=== PATIENT | male | born 1960 | race Caucasian/White ===

== ENCOUNTER → 2016-12-13 | Outpatient (CLI) | payer OTHER ==
[~2016-12-13] MED LIST: ADAL1INJ INJ; ASACOL PO; ASPI-435 PO; AZAT50TA17 PO; CALC-279 PO; CYAN1TAB PO; LORA-741 PO; LSN5 PO; MULT-506 PO; OMG3 PO; PRLSR20 PO; SERT50TA PO; TIMO0.5S2 OPB; ZOLP10TA PO
== END | disposition home or self-care (01) ==
LOC: C.CPL 15:41
DX: Z01.810 Encounter for preprocedural cardiovascular examination (principal)

== ENCOUNTER → 2017-06-29 | Outpatient (CLI) | payer OTHER ==
--- NOTE | 2017-06-29 17:46 | DIAGNOSTIC IMAGING REPORT ---
KUB CLINICAL HISTORY: N20.0 Nephrolithiasis COMPARISON STUDY: 01/27/2016 FINDINGS: There is no pathologic bowel dilatation. There are clustered lower pole right renal calculi measuring 15 mm in aggregate. There are clustered lower pole left renal calculi measuring 8 mm in greatest. There is no pathologic bowel dilatation. There are no definite ureteral calculi. There are surgical clips in the right upper quadrant. IMPRESSION: Bilateral nephrolithiasis with increasing right lower pole renal stone burden. Electronically signed by: Benjamin Callaway M.D. 06/29/2017 5:44 PM Dictated Date/Time: 06/29/2017 5:43 PM
== END | disposition home or self-care (01) ==
LOC: C.RAD 17:07
PROVIDERS: ATTEND Urology
DX: N20.0 Calculus of kidney (principal)

== ENCOUNTER 2019-08-14 08:52 | Inpatient (IN) ==
--- NOTE | 2019-08-09 12:33 | Anesthesiology Consultation ---
Date of Service August 09, 2019 Assessment & Plan Chart Review Chart Review: Acceptable Risk for Surgery (recent surgery- grade 2 view with mac 3) and Patient NOT seen in Pre Admission Testing History Surgery Operation Date: 08/14/19 10:40 Proposed Procedures p Navigational Bronchoscopy with ICG Markings, - Silvio Diaz MD, FACS s Robotic Left Video Assisted Thoracoscopy with Left Lower Lobe Wedge Resection, Possible Left Lower Lobectomy with Mediastinal Lyphadenectomy - Silvio Diaz MD, FACS Height/Weight Height: 6 ft Weight: 92.986 kg Allergies Allergy/AdvReac Type Severity Reaction Status Date / Time No Known Allergies Allergy Verified 08/09/19 10:30 Medications Home Medications Medication Instructions Recorded Confirmed Last Taken alfuzosin ER 10 mg tablet,extended 10 mg PO QAM #90 tab 06/07/19 08/09/19 08/01/19 08:00 release 24 hr aspirin 81 mg tablet,delayed 81 mg PO QAM tab 06/07/19 08/09/19 08/01/19 08:00 release cyanocobalamin (vit B-12) ER 1,000 1,000 mcg PO QAM tab 06/07/19 08/09/19 08/01/19 08:00 mcg tablet,extended release latanoprost 0.005 % eye drops 1 drp OPB HS ml 06/07/19 08/09/19 08/01/19 19:00 lisinopril 5 mg tablet 5 mg PO QAM tab 06/07/19 08/09/19 08/02/19 04:00 lorazepam 0.5 mg tablet 0.5 mg PO DAILY tab 06/07/19 08/09/19 Unknown mesalamine ER 0.375 gram 0.75 g PO BID cap 06/07/19 08/09/19 08/01/19 08:00 capsule,extended release 24 hr multivitamin tablet 1 tab PO DAILY 06/07/19 08/09/19 08/01/19 08:00 omeprazole 40 mg capsule,delayed 40 mg PO QAM cap 06/07/19 08/09/19 08/01/19 08:00 release sertraline 50 mg tablet 50 mg PO DAILY PRN tab 06/07/19 08/09/19 Unknown timolol maleate 0.5 % eye gel 1 drp OPB HS ml 06/07/19 08/09/19 08/01/19 19:00 forming solution zolpidem 10 mg tablet 10 mg PO HS PRN tab 06/07/19 08/09/19 08/01/19 19:00 adalimumab 40 mg/0.8 mL 40 mg SQ WK 06/19/19 08/09/19 07/30/19 08:00 subcutaneous syringe kit atorvastatin 20 mg tablet 20 mg PO HS 06/19/19 08/09/19 08/01/19 19:00 Past Medical History Medical History History of kidney stones History of squamous cell carcinoma Anxiety Benign prostate hyperplasia NO PROBLEMS AT CURRENT Crohns disease GERD (gastroesophageal reflux disease) Hypertension Osteoarthritis Past Family History Family History Father Prostate cancer Hypertension Cancer Mother Hypertension Past Surgical History Surgical History History of squamous cell carcinoma excision History of carpal tunnel surgery of left wrist ULNAR NERVE TRANSPOSITION History of colon surgery BOWEL RESECTION 1997 [facility] Hx of arthroscopy of right knee Hx of cholecystectomy 1997 Hx of colonoscopy Hx of lithotripsy S/P bronchoscopy with biopsy (08/02/19) Endobronchial Ultrasound Bronchoscopy Navigational with Biopsies Dr. Diaz 08/02/19 [facility] Social History Smoking Status: Never smoker Do You Dip or Chew Tobacco: No Hx Alcohol Use: Yes Alcohol type: beer alcohol intake frequency: holidays/special occasions only Hx Substance Use: No substance use type: does not use Testing Electrocardiogram Date: 07/11/19 Findings: + SB @ (52 bpm)
[~2019-08-14 08:52] MED LIST changes: -ADAL1INJ INJ; -ASACOL PO; -ASPI-435 PO; -AZAT50TA17 PO; -CALC-279 PO; -CYAN1TAB PO; +DEXAMETHASONE SOD INJ 4 MG/ML VIAL ONE; +GLYCOPYRROLATE 0.2 MG/ML VIAL ONE; +LIDOCAINE HCL 2% 2 ML VIAL/AMP(20MG/ML) INFIL ONE; -LORA-741 PO; +LR 15ML/HR IV SCH; -LSN5 PO; +MIDAZOLAM HCL 1 MG/ML 2ML VIAL ONE; -MULT-506 PO; +NEOSTIGMINE METHYLSULFATE 5 MG/5 ML SYR ONE; -OMG3 PO; +ONDANSETRON INJ 2 MG/ML 2 ML VIAL ONE; -PRLSR20 PO; +PROPOFOL IV EMULSION 10 MG/ML 20 ML VIAL IV ONE; -SERT50TA PO; -TIMO0.5S2 OPB; -ZOLP10TA PO; +fentaNYL citrate 100 MCG/2 ML VIAL ONE
--- NOTE | 2019-08-14 09:38 | History & Physical Bridge Note ---
Date of Service August 14, 2019 History & Physical Bridge Note I have examined the patient, reviewed the History & Physical and in the interval since the performance of the History & Physical I have noted the following changes of clinical significance: no changes noted
[2019-08-14] MEDS ORDERED: BUPIVACAINE 0.5 % 5 MG/1 ML MPF 30ML VIAL ONE (10:06)
[2019-08-14] MEDS ORDERED: BUPIVACAINE LIPOSOME 1.3% 266 MG/20 ML VIAL ONE (10:07)
[2019-08-14] MEDS ORDERED: SODIUM CHLORIDE 0.9% PF 50 ML VIAL ONE (10:07)
[2019-08-14] MEDS ORDERED: ONDANSETRON INJ 2 MG/ML 2 ML VIAL IV PRN ×2 (10:09→16:34)
[2019-08-14] MEDS ORDERED: ePHEDrine sulfate 50 MG/ML AMP IV PRN (10:09)
[2019-08-14] MEDS ORDERED: ATROPINE SULFATE 0.1 MG/ML 10ML SYR IV PRN (10:09)
[2019-08-14] MEDS ORDERED: HYDROmorphone INJ 2 MG/ML SYR/VIAL IV PRN (10:09)
[2019-08-14] MEDS ORDERED: CLINDAMYCIN PHOS 300 MG/2 ML VIAL ONE ×3 (10:36→12:00)
[2019-08-14] MEDS ORDERED: CLINDAMYCIN PHOS 900 MG/6 ML VIAL IV SCH (11:00)
--- NOTE | 2019-08-14 11:23 | Fluoroscopy Report ---
FL chest 1V frontal HISTORY: 59 years-old Male NAVIGATIONAL BRONCH LEFT STATUS post bronchoscopy COMPARISON: Chest CT 07/25/2019 TECHNIQUE: One spot fluoroscopic image of the left chest was obtained utilizing 38.7 seconds fluorosc opy time FINDINGS: Bronchoscope with sheath and guidewire projects over the left lung base. Previously noted solid pulmo nary nodule of the left lower lobe is not identified. IMPRESSION: Fluoroscopic assistance as above. Please see procedural report for further details. The above report was generated using voice recognition software. It may contain grammatical, syntax o r spelling errors. Electronically signed by: Salvador Singh M.D. 08/14/2019 11:21 AM
[2019-08-14] MEDS ORDERED: ePHEDrine sulfate 50 MG/ML SYR ONE (14:21)
[2019-08-14] MEDS ORDERED: PHENYLEPHRINE 100MCG/ML 5ML SYR ONE (14:21)
[2019-08-14] MEDS ORDERED: ROCURONIUM BROMIDE 10 MG/ML 5 ML VIAL ONE ×5 (14:33→15:30)
[2019-08-14] MEDS ORDERED: fentaNYL citrate 100 MCG/2 ML VIAL ONE ×2 (14:57→15:35)
--- NOTE | 2019-08-14 15:03 | Post Operative Brief Note ---
PG Immediate Post Op with CF Date of Surgery August 14, 2019 Pre & Post Diagnosis Operation Date: 08/14/19 10:30 Pre-Op Diagnosis: Left Lower Lobe Lung Mass, COPD Post-Op Diagnosis: Left Lower Lobe Lung Mass, COPD I identified the patient and participated in the time-out.: Yes Procedure Operation Date: 08/14/19 10:30 Actual Procedures p Navigational Bronchoscopy with ICG Markings,(Left) - Silvio Diaz MD, FACS s Robotic Left Video Assisted Thoracoscopy with Left Lower Lobe Wedge Resection, Left Lower Lobectomy with Mediastinal Lyphadenectomy(Left) - Silvio Diaz MD, FACS Surgeon Silvio Diaz MD, FACS Repairer [employer] Julio PEREZ Estimated Blood Loss 75 Findings Consistent with Post-Op Diagnosis Specimens Specimen Description: Frozen Section: #1 - left lower lobe wedge for diagnosis #2 - left lower lobe for bronchial margins Permanent Specimens: A. L9 lymph node x2 B. L8 lymph node x3 C. Level 7 lymph node D. L10 lymph node E. L11 lymph node x7 F. L12 lymph node G. Level 5 lymph node H. Level 6 lymph node Drains Mishra Catheter
[2019-08-14] MEDS ORDERED: METOCLOPRAMIDE HCL INJ 5 MG/ML 2 ML VIAL IV ONE (15:25)
[2019-08-14] MEDS: fentaNYL citrate 100 MCG/2 ML VIAL IV PRN ×4 (15:35→15:55)
--- NOTE | 2019-08-14 15:37 | Operative Report ---
Post Operative Report Pre & Post Diagnosis Operation Date: 08/14/19 10:30 Pre-Op Diagnosis: Left Lower Lobe Lung Mass, COPD Post-Op Diagnosis: Left Lower Lobe Lung Mass, COPD I identified the patient and participated in the time-out.: Yes Procedure Operation Date: 08/14/19 10:30 Actual Procedures p Navigational Bronchoscopy with ICG Markings,(Left) - Silvio Diaz MD, FACS s Robotic Left Video Assisted Thoracoscopy with Left Lower Lobe Wedge Resection, Left Lower Lobectomy with Mediastinal Lyphadenectomy(Left) - Silvio Diaz MD, FACS Surgeon Silvio Diaz MD, FACS Neurophysiologist Julio PEREZ Estimated Blood Loss 75 Findings Consistent with Post-Op Diagnosis Specimens Lymph nodes and left lower lobe Drains one 24 fr. chest tube Anesthesia Type General Complications none Disposition Accompanied Patient To Recovery: No Disposition: Recovery Room Indications Jonny Man is a 59-year-old male who was found to have a new mass in his left lower lobe. We worked him up and felt he would be a candidate for resection. On 08/14/2019 the patient was brought to the operating room and underwent an electromagnetic navigational bronchoscopy and marking of the mass with indocyanine green dye. Wedge resection was performed however I did not feel we had included the mass. For this reason I performed a robot-assisted thoracoscopic left lower lobectomy. He did quite well with negligible blood loss and it turns out this mass was indeed an adenocarcinoma. He had a second mass more inferior which had not changed over the last 4 years and this was a granuloma. He tolerated the procedure well and was extubated in the room. Description of Procedure Patient was brought to the operating room in supine position. General anesthesia was induced and intubation was performed with an 8.5 tube. After proper timeout had been called and prophylactic antibiotics given,a magnetic navigational bronchoscopy was performed. We are able to navigate out to the mass and it appeared we were in the vicinity with our radial ultrasound probe. 1 cc of indocyanine green dye was injected followed by half cc of air. We then remove the navigational catheter and the patient had no bleeding. He was then changed over to a double-lumen tube. There was some difficulty placing this but finally we got this properly positioned under bronchoscopic guidance with Dr. Cuadra. Patient was then turned in the right lateral decubitus position his left chest prepped and draped in usual sterile fashion. Another timeout was called and a second dose of antibiotics given as it been more than an hour since her first dose. I placed a 5 mm port in the eighth interspace on the left just anterior to the midaxillary line. There were no adhesions noted. I then put an 8 mm port anterior and then posterior under thoracoscopic guidance. Finally a 5 mm port was placed closer to the spine in the eighth interspace. Assistance port was placed on the left just above the diaphragm. Exparel, 266 mg and 20 cc of solution, was mixed with 30 cc of 0.5% Marcaine and 250 cc of saline. This was injected into each of the port sites before remaining incision. It was also injected into each of the intercostal spaces from the second to the 12th rib. This was done under thoracoscopic guidance. The robot was then docked. Really upon going and we addressed the left lower lobe and used our firefly fluorescence and solve the indocyanine green dye. This was wedged out. Unfortunately it did not feel like a mass was in this and I did send it down for frozen section. Dr. Rich concurred that he saw no mass. I closely inspected the area and did not palpate any masses however it is difficult to do with the robot. Given his high risk I elected to proceed with a lobectomy. The inferior pulmonary ligament was taken down and a level 9 node was taken. I carried this up and dissected out the inferior pulmonary vein and dissected out the level 8 nodes. Coming up more posteriorly I then dissected out level 7 node. I dissected out the artery and the posterior aspect of the vein and the bronchus. Tension was then turned towards anteriorly and I dissected out the anterior aspect of the vein and coming up dissected out a level 11 node. I then went to the fissure and completed the fissure from the continuation pulmonary artery to the right lower lobe posteriorly through the fissure and pleated the fissure using the [place] bipolar forceps. It was almost a complete fissure. I then gently dissected out the level 12 nodes around the artery to the superior segment of the lower lobe and fired Endo THALIA stapler across this. I then freed up the bronchus and the artery a bit more posteriorly. Coming back around I then dissected out anteriorly the entire anterior fissure and completed this using Endo THALIA staplers. We easily identify the artery and the bronchus. Endo THALIA stapler was fired across the bronchus just distal to the takeoff of the lingual artery. We then dissected this free and were able to identify the lingual bronchus and fired an Endo THALIA stapler just distal to this. We then placed the lobe into an Endobag but left in place while I dissected out the anterior level 10 nodes as well as a level 5 and 6 node. These were all delivered off the field. The robot was then undocked and we removed the mass. We assess for air leaks and the really was not an air leak. 24 [place]ian chest tube was placed in the anteriormost port directed towards the apex and held in place heavy silk suture. We had to enlarge the assistance port in order to deliver the lobe off of the field in the Endobag. We then closed this with a 0 Vicryl running and you was fashion to reapproximate the muscle. 4 Monocryl was then used a running septic or fashion approximate the wound edges. Patient was then turned into the supine position and extubated and was transported back to the postanesthesia care unit stable condition. Frozen section showed this mass to be an adenocarcinoma which was mucin producing. The lowermost mass was a granuloma. The patient tolerated it well. I attest to the content of the Intraoperative Record and any orders documented therein. Any exceptions are noted below.
--- NOTE | 2019-08-14 15:55 | XRay Report ---
XR chest 1V portable HISTORY: 59 years-old Male LLL follow-up study in a patient with prior left lung surgery. COMPARISON: Chest radiograph 08/02/2019 TECHNIQUE: Portable AP view of the chest FINDINGS: Postoperative changes of the left lung. Left-sided chest tube distal tip terminates adjacent to the l ateral left lung apex. Moderate subcutaneous and deep tissue air about the left lateral hemithorax. N o definite pneumothorax identified. Opacity of the lateral right upper lung may reflect loculated flu id within the minor fissure versus airspace disease. Small right pleural effusion is suggested. Cardi omegaly without overt pulmonary edema. IMPRESSION: 1. Postoperative changes of the left lung with left-sided chest tube in place. No definite pneumothor ax identified. 2. Small right pleural effusion with right lateral midlung opacity suggestive of loculated fluid with in the minor fissure. The above report was generated using voice recognition software. It may contain grammatical, syntax o r spelling errors. Electronically signed by: Salvador Singh M.D. 08/14/2019 3:53 PM
--- NOTE | 2019-08-14 16:55 | Anesthesiology Progress Note ---
Date of Service August 14, 2019 Anesthesia Post Procedure Vital Signs Vital Signs: Temp Pulse Pulse Resp BP BP Pulse Ox 08/14/19 16:10 36.2 C L 76 16 148/80 H 95 08/14/19 16:00 73 16 146/81 H 99 08/14/19 15:50 82 16 163/79 H 98 08/14/19 15:40 76 16 155/79 H 95 08/14/19 15:30 77 16 136/90 95 08/14/19 15:23 36.0 C L 82 16 141/85 H 96 08/14/19 09:45 36.4 C L 60 20 154/85 H 99 Transfer of Care Handoff Completed per policy Notes Mental Status: alert / awake / arousable and participated in evaluation Patient Amnestic to Procedure: Yes Nausea / Vomiting: adequately controlled Pain: adequately controlled Airway Patency, RR, SpO2: stable & adequate BP & HR: stable & adequate Hydration State: stable & adequate Anesthetic Complications: no major complications apparent and Pt Satisfied with anesthetic care
[2019-08-14] MEDS: MoRPHine SULFATE 2 MG/ML CARP IV PRN ×3 (16:56→23:55)
[2019-08-14] MEDS: ACETAMINOPHEN 1,000 MG/100 ML VIAL IV SCH (17:49)
[2019-08-14] MEDS: OXYCODONE HCL IR 5 MG TAB (IMMEDIATE RELEASE) PO PRN (20:05)
[2019-08-14] MEDS: D5W AND 1/2NSS 1,000 ML IV SCH (20:07)
[2019-08-14] MEDS ORDERED: COUGH DROP (SUGAR FREE) LOZ 24 LOZ/1 BOX BUCCAL PRN (20:53)
[2019-08-14] MEDS: SERTRALINE HCL 50 MG TABLET PO SCH (21:06)
[2019-08-14] MEDS: DOCUSATE SODIUM 100 MG CAP PO SCH (21:06)
[2019-08-14] MEDS: LATANOPROST 0.005% OP SOLN 2.5 ML BTL OPB SCH (21:06)
[2019-08-14] MEDS: ATORVASTATIN 20 MG TAB PO SCH (21:06)
[2019-08-14] MEDS: TIMOLOL GFS 0.5% OPH SOLN 74 DROPS/5 ML BTL OPB SCH (21:06)
[2019-08-14] MEDS ORDERED: COUGH DROP (SUGAR FREE) LOZ 24 LOZ/1 BOX BUCCAL ONE (21:11)
[2019-08-14] MEDS: MESALAMINE 250 MG CAPCR PO SCH (21:12)
[2019-08-14] MEDS ORDERED: INFLUENZA VIRUS QUAD VACCINE 0.5 ML SYR IM ONE (21:30)
[2019-08-14] MEDS ORDERED: INFLUENZA ADMINISTRATION CHARGE ONE (21:30)
[2019-08-14] MEDS: METOCLOPRAMIDE HCL INJ 5 MG/ML 2 ML VIAL IV SCH (23:56)
[2019-08-15] MEDS: ACETAMINOPHEN 1,000 MG/100 ML VIAL IV SCH (01:18)
[2019-08-15] MEDS: OXYCODONE HCL IR 5 MG TAB (IMMEDIATE RELEASE) PO PRN ×3 (05:44→21:44)
[2019-08-15] MEDS: D5W AND 1/2NSS 1,000 ML IV SCH (05:53)
[2019-08-15 05:54] LABS: Basophils # (auto) 0.01 K/uL (0-0.2); Basophils % (auto) 0.1 %; Hematocrit (blood only) 39.2 % (42-52); Hemoglobin 13.3 g/dL (14.0-18.0); Immature Granulocytes # (auto) 0.05 K/uL (0.00-0.02); Immature Granulocytes % (auto) 0.3 %; Lymphocytes # (auto) 1.61 K/uL (1.2-3.4); Lymphocytes % (auto) 8.9 %; Mean Corpuscular Hemoglobin 28.3 pg (25-34); Mean Corpuscular Volume 83.4 fL (80-100); Mean Platelet Volume 9.2 fL (7.4-10.4); Monocytes # (auto) 2.24 K/uL (0.11-0.59); Monocytes % (auto) 12.4 %; Neutrophils # (auto) 14.18 K/uL (1.4-6.5); Neutrophils % (auto) 78.3 %; Platelet Count 368 K/uL (130-400); RDW Coefficient of Variation 15.1 % (11.5-14.5); RDW Standard Deviation 46.3 fL (36.4-46.3); White Blood Count 18.09 K/uL (4.8-10.8)
[2019-08-15 06:12] LABS: BUN Creatinine Ratio 11.6 (10-20); Calcium 8.9 mg/dl (8.5-10.1); Creatinine Clr Calc Pharmacy 107.8 ml/min; Est GFR (Non-African American) 97.5; Mean Corpuscular Hgb Conc 33.9 g/dL (32-36); Potassium 3.8 mmol/L (3.5-5.1)
--- NOTE | 2019-08-15 07:20 | XRay Report ---
XR chest 1V portable CLINICAL HISTORY: Postop left lung surgery. COMPARISON STUDY: 08/14/2019 FINDINGS: A left-sided chest tube is again visualized. There is decreasing left-sided subcutaneous em physema. There is no pneumothorax. There is left-sided volume loss consistent with history of surgery . There has been resolution of the right midlung zone opacity, consistent with resolving intrafissura l fluid.[ IMPRESSION: 1. Postsurgical changes involving the left hemithorax. No evidence of pneumothorax 2. Interval resolution of the previously identified fluid loculated within the right minor fissure Electronically signed by: Benjamin Callaway M.D. 08/15/2019 7:19 AM
[2019-08-15] MEDS: MoRPHine SULFATE 2 MG/ML CARP IV PRN ×3 (07:42→19:31)
[2019-08-15] MEDS: METOCLOPRAMIDE HCL INJ 5 MG/ML 2 ML VIAL IV SCH (07:42)
--- NOTE | 2019-08-15 07:58 | Surgery Progress Note ---
Date of Service August 15, 2019 Assessment & Plan (1) Adenocarcinoma, lung: -pt. is s/p LLL on 08/14/19 -frozen section showed adenocarcinoma with final path pending -CXR today shows no pneumothorax -CT will stay in as he has tiny air leak with suction; no air leak on water seal -due to urinary complaints will place on flomax -continue pain meds -encourage ambulation, coughing, deep breathing, pulmonary toilet, and use of IS -lovenox in place for DVT prevention Subjective Pt. notes discomfort from chest tube. He has been ambulating in hallway. He is tolerating o intake without N/V. No fevers, shakes, chills. He notes diff iculty voiding--states that urine "dribbles and he does not feel as though his bladder is emptying." He denies voiding difficulties at home. Physical Exam Constitutional: well developed and well nourished; no acute distress Respiratory: normal respiratory effort; no respiratory distress and no labored breathing slight decrease of BS at left base with occasional rhonchi that clears with cough Cardiovascular: Rate/Rhythm: regular rate and regular rhythm Gastrointestinal (Abdomen): Percussion/Palpation: abdomen nontender Musculoskeletal: no calf pain Results & Data Vital Signs (Past 12 Hours) Vital Signs Temp Pulse Resp BP Pulse Ox 08/15/19 06:48 142/84 H 08/15/19 05:36 37.1 C 58 L 18 173/91 H 93 08/15/19 03:35 36.9 C 61 17 119/74 91 08/15/19 01:35 37.1 C 64 19 146/89 H 91 08/14/19 23:56 94 08/14/19 23:35 36.9 C 69 17 128/75 91 08/14/19 21:33 36.8 C 67 18 124/75 93 08/14/19 20:40 36.7 C 70 18 136/88 93 PG Care Time/CCT Total # of Minutes Spent Total Time Spent with Patient: Total time spent is greater than 50% in c oordination of care (as documented) at patient's floor/unit and/or counseling patient:
[2019-08-15] MEDS: ENOXAPARIN INJ 40 MG/0.4 ML SYR SQ SCH (10:13)
[2019-08-15] MEDS: MULTIVITAMIN TAB PO SCH (10:14)
[2019-08-15] MEDS: CYANOCOBALAMIN 500 MCG TABLET (VITAMIN B-12) PO SCH (10:14)
[2019-08-15] MEDS: TAMSULOSIN HCL 0.4 MG CAP PO SCH (10:14)
[2019-08-15] MEDS: MESALAMINE 250 MG CAPCR PO SCH ×2 (10:14→19:32)
[2019-08-15] MEDS: LORazepam 0.5 MG TAB PO SCH ×2 (10:14→10:20)
[2019-08-15] MEDS: DOCUSATE SODIUM 100 MG CAP PO SCH ×2 (10:14→19:33)
[2019-08-15] MEDS: ASPIRIN 81 MG ECTAB PO SCH (10:15)
[2019-08-15] MEDS: LISINOPRIL 5 MG TAB PO SCH (10:15)
[2019-08-15] MEDS: PANTOprazole 40 MG TAB PO SCH (10:15)
[2019-08-15] MEDS: KETOROLAC TROMETHAMINE 15 MG/ML VIAL IV PRN (11:37)
[2019-08-15] MEDS: ACETAMINOPHEN 325 MG TAB PO SCH ×2 (11:37→17:01)
[2019-08-15] MEDS ORDERED: LORazepam 0.5 MG TAB PO PRN (12:16)
[2019-08-15] MEDS: SERTRALINE HCL 50 MG TABLET PO SCH (19:33)
[2019-08-15] MEDS: ATORVASTATIN 20 MG TAB PO SCH (19:33)
[2019-08-15] MEDS: LATANOPROST 0.005% OP SOLN 2.5 ML BTL OPB SCH ×2 (19:34→19:35)
[2019-08-15] MEDS: TIMOLOL GFS 0.5% OPH SOLN 74 DROPS/5 ML BTL OPB SCH (19:35)
[2019-08-16] MEDS: ACETAMINOPHEN 325 MG TAB PO SCH ×3 (00:13→11:00)
[2019-08-16] MEDS: MoRPHine SULFATE 2 MG/ML CARP IV PRN ×2 (00:47→05:57)
--- NOTE | 2019-08-16 07:07 | XRay Report ---
XR chest 1V portable CLINICAL HISTORY: Postop left lung surgery COMPARISON STUDY: 08/15/2019 FINDINGS: The left-sided chest tube remains unchanged in position. There is no left-sided pneumothora x. There is left-sided volume loss consistent with history of prior surgery. The heart remains mildly enlarged. There is a small amount of left-sided subcutaneous emphysema. There are mild right perihil ar atelectatic changes. There is no lobar consolidation. There is no failure.[ IMPRESSION: Stable findings. Postsurgical changes involving the left lung. No evidence of pneumothora x. Electronically signed by: Benjamin Callaway M.D. 08/16/2019 7:06 AM
--- NOTE | 2019-08-16 07:49 | XRay Report ---
XR chest 1V portable CLINICAL HISTORY: tube removal COMPARISON STUDY: 08/16/2019 FINDINGS: The cardiac and mediastinal contours remain stable. There is been interval removal of the l eft-sided chest tube. No pneumothorax is visualized. There is a small amount of subcutaneous emphysem a on the left. There is minor basilar atelectasis. There is no lobar consolidation. There is no failu re.[ IMPRESSION: Interval removal of the left-sided chest tube. No evidence of pneumothorax. Electronically signed by: Benjamin Callaway M.D. 08/16/2019 7:47 AM
[2019-08-16] MEDS: KETOROLAC TROMETHAMINE 15 MG/ML VIAL IV PRN (08:00)
[2019-08-16] MEDS: DOCUSATE SODIUM 100 MG CAP PO SCH (09:08)
[2019-08-16] MEDS: PANTOprazole 40 MG TAB PO SCH (09:08)
[2019-08-16] MEDS: MESALAMINE 250 MG CAPCR PO SCH (09:08)
[2019-08-16] MEDS: CYANOCOBALAMIN 500 MCG TABLET (VITAMIN B-12) PO SCH (09:08)
[2019-08-16] MEDS: MULTIVITAMIN TAB PO SCH (09:08)
[2019-08-16] MEDS: LISINOPRIL 5 MG TAB PO SCH (09:09)
[2019-08-16] MEDS: TAMSULOSIN HCL 0.4 MG CAP PO SCH (09:09)
[2019-08-16] MEDS: ASPIRIN 81 MG ECTAB PO SCH (09:09)
[2019-08-16] MEDS: ENOXAPARIN INJ 40 MG/0.4 ML SYR SQ SCH (09:09)
--- NOTE | 2019-08-18 09:13 | Discharge Summary ---
Date of Service Date of admission 08/14/2019 Date of discharge 08/16/2019 Admission HPI Per Admitting Provider 59-year-old male who was found to have a new nodule his left lung which was concerning. We worked him up and felt he would be a candidate for a marking using letter magnetic navigational bronchoscopy and indocyanine green dye with a wedge resection frozen section. This was done with the da Magdi robot. Discharge Data Procedures Performed Operation Date: 08/14/19 10:30 Actual Procedures s Navigational Bronchoscopy with ICG Markings,(Left) - Silvio Diaz MD, FACS p Robotic Left Video Assisted Thoracoscopy with Left Lower Lobe Wedge Resection, Left Lower Lobectomy with Mediastinal Lyphadenectomy(Left) - Silvio Diaz MD, FACS Hospital Course (1) Adenocarcinoma, lung: (2) S/P lobectomy of lung: Mr. Brewer is admitted on 08/14/2019 and underwent an uncomplicated elec tromagnetic navigational bronchoscopy and marking of this left lower lobe mass with a injection of indocyanine green dye. We then turned the patient and performed a robot-assisted thoracoscopic evaluation with a wedge resection and frozen section. We then performed a robot-assisted thoracoscopic left lower lobectomy with mediastinal lymphadenectomy. He did very well had no air leak. On postop day 2 I removed his chest tube. This greatly alleviated his pain. He was ambulate in the hallway and was on room air. Final pathology shows this to be a stage I adenocarcinoma of the lung. All 19 nodes were negative as were his margins. He will not require adjuvant therapy. He was discharged home on postop day 2. I will see him back in the office in a week.
== END 2019-08-16 11:19 | disposition home or self-care (01) | DRG 164 ==
LOC: ASU 08:52 → 3N 15:14

== ENCOUNTER 2020-05-14 11:35 | Observation (INO) ==
--- NOTE | 2020-05-14 15:50 | History & Physical Report ---
Date of Service May 14, 2020 Assessment & Plan (1) Urinary tract obstruction by kidney stone: Proximal right-sided 12mm ureteral stone with associated hydronephrosis based on CT from earlier today at [facility]. Spoke with Dr Rosado from [facility] who will likely take him to the OR this evening for ureteral stent placement. ?UTI given chills overnight last pm and leukocytosis. Thus, s/p rocephin at outside hospital prior to transfer to [facility]. Will need to f/u tomorrow with urine culture at [facility]. Cont IV cipro in meantime. NPO, copious IV fluids, pain meds, flomax, and anti-emetics. Spoke with Dr Rosado re: SMV thrombosis and need for anticoagulation. Will start latter when safe to do so from urological perspective. (2) Superior mesenteric vein thrombosis: This is the likely cause of his anterior abdominal pain that is to the right of his midline incision. Risk factors - inflammation from Crohn's disease, recent surgery, etc. Can't rule out hereditary factors. Consider genetic work-up. Spoke with Dr Galloway from general surgery who will consult. Will need systemic anticoagulation as soon as possible. I discussed this issue with Dr Rosado from urology. Finally, I contacted [facility] and spoke with the patient's colorectal surgeon, Dr Gómez. He agrees with systemic anticoagulation as soon as possible. Start cipro/flagyl IV to prevent small bowel translocation. (3) Crohns disease: Long-standing diagnosis. On biological agent and mesalamine. Recent small bowel resection at [facility] on 04/29/20. Continue mesalamine. (4) Wells esophagus: Cont PPI daily. (5) GERD (gastroesophageal reflux disease): PPI daily. (6) Hypertension: Controlled. Hold SANDRA in the setting of obstructing stone. (7) Benign prostate hyperplasia: Cont flomax. (8) Hypokalemia: Replace with KCL in IV fluids as well as KCL 40meq PO x 1. Repeat BMP am. Mag level at [facility] was normal. (9) Hyperlipidemia: Cont statin (10) DVT prophylaxis: Following ureteral stent placement will be on systemic anticoagulation for SMV thrombosis. Total time 75 minutes including reviewing all outside records, discussing care with [facility] gen surg & urology, and contacting colorectal surgery at [facility]. Admission and Anticipated Discharge Date Admission Date: May 14, 2020 History of Present Illness Chief Complaint: right flank pain 2nd to kidney stone Primary Care Provider: Simone Ying 60yo male with h/o Crohn's disease with recent small bowel resection on 04/29/2020 at [facility] (about 1 foot of small intestine) and discharged on 05/04/20 to home presents as a transfer from [facility] due to a 12mm right- sided obstructing kidney stone. Pain started in right lower back last night about 10pm. He had associated emesis. Pain was constant through the night last evening. This am finally went to [facility] for evaluation due to persistent pain. CT abd/pelvis showed the right-sided stone. No dysuria or hematuria. Has had lithotripsy in the past but no stents (has seen Dr Beasley with [facility]). Since coming home from [place] he has had fairly constant pain to the right side of his midline abdominal incision. He saw his surgeon, Dr Cornelius Gómez, last Monday and was given a good report from an operative standpoint. He mentions he had gone to the ER in [place] on May 05 due to this pain and had a CT abd/pelvis at that time as well. He was told that the CT was without any acute pathology. Of note - the pain in the right flank is separate from the anterior abdominal pain. Records from [facility] reviewed: CT abd/pelvis earlier today - 1. obstructing 12mm right kidney stone with hydronephrosis 2. 8mm stone in left renal pelvis 3. extensive thrombus in the superior mesenteric vein and branch venous structures to the right lower quadrant 4. postsurgical changes right lower quadrant. Residual free air likely result of recent surgery. WBC 15.8 hemoglobin 10.9 MCV 80 Platelets 492 Diff -- Neutrophils 87% BUN 12 Cr 1 Na 134 K 3 Mag 1.8 lactate 0.9 ESR 40 LFTs wnl ua - 3+ blood; 25-50 RBCs on microscopy; no bacteria; 1+ protein Allergies Allergy/AdvReac Type Severity Reaction Status Date / Time No Known Allergies Allergy Verified 10/07/19 14:20 Home Medications Home Medications Medication Instructions Recorded Confirmed Type aspirin 81 mg tablet,delayed 81 mg PO QAM tab 06/07/19 05/14/20 History release cyanocobalamin (vitamin B-12) 1,000 mcg PO QAM tab 06/07/19 05/14/20 History 1,000 mcg tablet,extended release lisinopril 5 mg tablet 5 mg PO QAM tab 06/07/19 05/14/20 History lorazepam 0.5 mg tablet 0.5 mg PO DAILY tab 06/07/19 05/14/20 History mesalamine 0.375 gram 0.75 g PO BID cap 06/07/19 05/14/20 History capsule,extended release 24 hr multivitamin 1 tab PO DAILY 06/07/19 05/14/20 History omeprazole 40 mg capsule,delayed 40 mg PO QAM cap 06/07/19 05/14/20 History release sertraline 50 mg tablet 50 mg PO HS tab 06/07/19 05/14/20 History zolpidem 10 mg tablet 10 mg PO HS PRN tab 06/07/19 05/14/20 History atorvastatin 20 mg tablet 20 mg PO HS 06/19/19 05/14/20 History oxycodone-acetaminophen 5 mg-325 1 tab PO Q4H PRN tab 10/07/19 05/14/20 History mg tablet adalimumab [Humira(CF) Pen] mg SUBCUT 05/14/20 History metronidazole 05/14/20 History oxycodone 5 mg PO Q4 PRN 05/14/20 05/14/20 History tamsulosin [Flomax] 0.4 mg PO DAILY 05/14/20 05/14/20 History Past Med/Surg History Medical History (Updated 05/14/20 @ 18:36 by Michelet Landry) Adenocarcinoma, lung Anxiety Wells esophagus Benign prostate hyperplasia Crohns disease dx age 23 GERD (gastroesophageal reflux disease) History of kidney stones History of squamous cell carcinoma skin cancer Hyperlipidemia Hypertension Osteoarthritis Surgical History (Updated 05/14/20 @ 18:31 by Michelet Landry) History of carpal tunnel surgery of left wrist ULNAR NERVE TRANSPOSITION History of colon surgery BOWEL RESECTION 1997 [facility] History of squamous cell carcinoma excision Hx of arthroscopy of right knee Hx of cholecystectomy 1997 Hx of colonoscopy Hx of lithotripsy S/P bronchoscopy with biopsy (08/02/19) Endobronchial Ultrasound Bronchoscopy Navigational with Biopsies Dr. Diaz 08/02/19 [facility] S/P lobectomy of lung LLL S/P small bowel resection ~12 inches, Dr Cornelius Gómez, [facility]; 2nd Crohn's; 04/29/20 Status post lobectomy of lung (08/14/19) Navigational Bronchoscopy with ICG Markings Robotic Left Video Assisted Thoracoscopy with Left Lower Lobe Wedge Resection, Left Lower Lobectomy with Mediastinal Lyphadenectomy Dr. 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 Feels Safe at Home: Yes Childhood Exposure to Second-Hand Smoke: Yes Review of Systems Constitutional: + chills and + anorexia; no fever Eyes: no worsening vision Ear, Nose, Mouth, Throat: no nasal congestion and no sore throat no loss of taste or smell Respiratory: + cough; no dyspnea, no dyspnea on exertion and no wheezing Cardiovascular: no chest pain and no edema Gastrointestinal: + abdominal pain, + nausea, + vomiting and + diarrhea/loose stools (chronic ) Genitourinary: no dysuria and no hematuria Musculoskeletal: + back pain Integumentary: no rash Neurologic: no loss of sensation Psychiatric: no depression Endocrine: no diabetes Hematologic / Lymphatic: no easy bleeding and no easy bruising no history of blood clots Physical Exam Constitutional: well developed and well nourished; no acute distress and no altered mental status Eyes: PERRL ENMT: external ear and nose normal, oropharynx normal Neck: trachea midline, no thyromegaly Respiratory: normal respiratory effort, lungs clear to auscultation Cardiovascular: Rate/Rhythm: regular rate and regular rhythm Heart Sounds: normal S1 and normal S2; no murmur Vessels: posterior tibial pulses present and dorsalis pedis pulses present; no JVD Extremities: no edema Gastrointestinal (Abdomen): Inspection/Auscultation: normal bowel sounds and + abdominal surgical incision (midline - well-healed ); abdomen not distended Percussion/Palpation: + abdomen tender (right flank; right lower abdomen, adjacent to incision) and abdomen soft; no guarding and no hepatosplenomegaly Musculoskeletal: no cyanosis or clubbing, extremities motor strength 5/5 Skin: surgical incision midline abdomen clean/dry/intact Neurologic: deep tendon reflexes 2+ bilaterally and moves all extremities; no focal motor deficits Psychiatric: A+Ox3, euthymic affect Lymphatic: no cervical lymphadenopathy Results & Data Results & Data ([facility]) Vital Signs (Past 12 Hours) Vital Signs Temp Pulse Resp BP Pulse Ox 05/14/20 15:00 37 C 56 L 20 125/78 99 Intake and Output 05/14/20 05/14/20 05/14/20 06:59 14:59 22:59 Output Total 300 / 300 Balance -300 / -300 Output: Urine 300 / 300 Other: Weight 78.018 kg Patient Weight 05/15/20 06:59 Weight 78.018 kg Laboratory Results see HPI for labs from [facility] Diagnostic Findings see CT findings as noted in HPI Code Status & VTE Plan Code Status full VTE Prophylaxis Plan VTE Prophylaxis will be ordered: Yes PG Care Time/CCT Total # of Minutes Spent Total Time Spent with Patient: Total time spent is greater than 50% in coordination of care (as documented) at patient's floor/unit and/or counseling patient: Coding Level of Care Code 01214 Initial Inpt Care Lvl 3 Diagnoses Urinary tract obstruction by kidney stone N20.0; N13.8 Superior mesenteric vein thrombosis K55.069 Crohns disease K50.019 Gastrointestinal tract location: small intestine Digestive disease complication type: unspecified complication Wells esophagus K22.70 Wells's esophagus type: without dysplasia GERD (gastroesophageal reflux disease) K21.9 Esophagitis presence: esophagitis presence not specified Hypertension I10 Hypertension type: essential hypertension Benign prostate hyperplasia N40.0 Lower urinary tract symptom presence: symptoms absent Hypokalemia E87.6 Hyperlipidemia E78.2 Hyperlipidemia type: mixed hyperlipidemia DVT prophylaxis Z29.9 (1) Benign prostate hyperplasia Lower urinary tract symptom presence: symptoms absent Qualified Code(s): N40.0 - Benign prostatic hyperplasia without lower urinary tract symptoms (2) Crohns disease Gastrointestinal tract location: small intestine Digestive disease complication type: unspecified complication Qualified Code(s): K50.019 - Crohn's disease of small intestine with unspecified complications (3) GERD (gastroesophageal reflux disease) Esophagitis presence: esophagitis presence not specified Qualified Code(s): K21.9 - Gastro-esophageal reflux disease without esophagitis (4) Wells esophagus Wells's esophagus type: without dysplasia Qualified Code(s): K22.70 - Wells's esophagus without dysplasia (5) Hypertension Hypertension type: essential hypertension Qualified Code(s): I10 - Essential (primary) hypertension (6) Hyperlipidemia Hyperlipidemia type: mixed hyperlipidemia Qualified Code(s): E78.2 - Mixed hyperlipidemia
[2020-05-14] MEDS ORDERED: ONDANSETRON INJ 2 MG/ML 2 ML VIAL IV PRN (16:17)
[2020-05-14] MEDS ORDERED: SODIUM CHLORIDE 0.9% 1000ML 1,000 ML IV SCH (16:30)
[2020-05-14] MEDS ORDERED: POTASSIUM CHLORIDE 20 MEQ in SODIUM CHLORIDE 0.9% 1000ML 1,000 ML IV SCH (16:36)
[2020-05-14] MEDS ORDERED: ZOLPIDEM TARTRATE 10 MG TAB PO PRN (16:37)
[2020-05-14] MEDS ORDERED: POTASSIUM CHLORIDE 20 MEQ TABCR PO STA (16:40)
[2020-05-14] MEDS: MoRPHine SULFATE 2 MG/ML CARP IV PRN ×2 (16:46→20:17)
--- NOTE | 2020-05-14 17:08 | XRay Report ---
XR KUB/Abdomen 1 view CLINICAL HISTORY: r stone nephrocalcinosis COMPARISON STUDY: 06/29/2017 FINDINGS: Increase in size of bilateral renal calcifications. 9 mm calcification overlying the right renal pelvis. 6 mm calcification overlying lower pole left kidney. Nonobstructive bowel pattern. IMPRESSION: Bilateral renal nephrocalcinosis with calcifications within the right renal pelvis and l ower pole left kidney. ACT 112: Negative or not required by law. The above report was generated using voice recognition software. It may contain grammatical, syntax or spelling errors. Electronically signed by: Martinez Maradiaga M.D. 05/14/2020 5:06 PM
[2020-05-14] MEDS: metroNIDAZOLE 500 MG/100 ML BAG IV SCH (17:24)
[2020-05-14] MEDS: CIPROFLOXACIN / D5W 400 MG/200 ML BAG IV SCH (17:25)
--- NOTE | 2020-05-14 17:43 | Surgery Consultation ---
Date of Consultation May 14, 2020 Assessment & Plan (1) Superior mesenteric vein thrombosis: This is a 60y M with a PMH of HTN, adenocarcinoma of the lung s/p lobectomy, and Crohn's disease s/p small bowel resection on 04/29/20 at [facility] who presents to the [facility] on 05/14/20 with complaints of right flank and abdominal pain. Patient presented to an OSH today where he underwent a CT scan revealing superior mesenteric vein thrombus along with a 12mm obstructing R kidney stone with hydronephrosis. He was subsequently transferred to here for further management. Patient is tender to palpation to the right of his midline incision. Regarding his SMV thrombus we would recommend anticoagulation for management. No plans for surgical intervention at this time from our end. Urology consultation placed for R kidney stone with signs of obstruction. We will continue to follow along with you. Supervising Physician Co-Signing Physician Notes As per ANA Irizarry Patient was seen at [facility] last Monday as follow-up on his recent Crohn's resection terminal ileum at that time the patient has some pain in his abdomen but had a CAT scan which did not confirm or see any mesenteric thrombosis Since that time the patient is pain is fairly same he is able to tolerate a regular diet without any issues although last evening he did 1 bout of emesis The abdomen is benign the midline incision is healed well he does have some tenderness in the right lower quadrant that pretty much was there when seen by the surgeon last Monday At this time the patient is in the process of having a stent placement for right ureteral calculi Regarding mesenteric thrombosis anticoagulation should be started as soon as possible and discussed with Dr. Rosado it can be started right after his procedure We will follow him clinically in case there would be a deterioration and possible bowel compromise but hopefully that will not be the case Patient has a perfect set up for developing mesenteric vein thrombosis history o f Crohn's disease and a malignancy adenocarcinoma of the lung History of Present Illness Attending Physician: Michelet Landry History of Present Illness This is a 60y M with a PMH of HTN, adenocarcinoma of the lung s/p lobectomy, and Crohn's disease s/p bowel resection on 04/29/20 at [facility] who presents to the [facility] on 05/14/20 with complaints of right flank and abdominal pain. Patient reports that he was discharged from [facility] on 05/04 and on 05/05 presented to an OSH ED with abdominal pain. He states he had a CT performed which per patient revealed no acute pathology and was discharged to home. Since then patient states he has had daily abdominal pain, stating it's crampy and constant in nature. Yesterday evening pt then developed back pain along with nausea/vomiting prompting him to return to the ED. OSH CT scan revealed superior mesenteric vein thrombus, along with a 12mm R kidney stone with hydronephrosis, and an 8mm stone in left renal pelvis. Surgery was consulted regarding SMV thrombus. Patient endorses + nausea/vomiting and chills. He states that the abdominal pain has progressed in severity over the past 2 weeks. He denies any bloody BM's, change in bowel habits (normally has loose stools), any pain with eating, fevers, urinary symptoms, chest pain or shortness of breath. Abdominal surgical history includes cholecystectomy '98 and bowel resection '98. He reports having lithotripsy performed for 3/4 prior kidney stone episodes. Allergies Allergy/AdvReac Type Severity Reaction Status Date / Time No Known Allergies Allergy Verified 10/07/19 14:20 Home Medications Home Medications Medication Instructions Recorded Confirmed Type aspirin 81 mg tablet,delayed 81 mg PO QAM tab 06/07/19 05/14/20 History release cyanocobalamin (vitamin B-12) 1,000 mcg PO QAM tab 06/07/19 05/14/20 History 1,000 mcg tablet,extended release lisinopril 5 mg tablet 5 mg PO QAM tab 06/07/19 05/14/20 History lorazepam 0.5 mg tablet 0.5 mg PO DAILY tab 06/07/19 05/14/20 History mesalamine 0.375 gram 0.75 g PO BID cap 06/07/19 05/14/20 History capsule,extended release 24 hr multivitamin 1 tab PO DAILY 06/07/19 05/14/20 History omeprazole 40 mg capsule,delayed 40 mg PO QAM cap 06/07/19 05/14/20 History release sertraline 50 mg tablet 50 mg PO HS tab 06/07/19 05/14/20 History zolpidem 10 mg tablet 10 mg PO HS PRN tab 06/07/19 05/14/20 History atorvastatin 20 mg tablet 20 mg PO HS 06/19/19 05/14/20 History oxycodone-acetaminophen 5 mg-325 1 tab PO Q4H PRN tab 10/07/19 05/14/20 History mg tablet adalimumab [Humira(CF) Pen] mg SUBCUT 05/14/20 History metronidazole 05/14/20 History oxycodone 5 mg PO Q4 PRN 05/14/20 05/14/20 History tamsulosin [Flomax] 0.4 mg PO DAILY 05/14/20 05/14/20 History Patient History Medical History (Updated 05/14/20 @ 18:36 by Michelet Landry) Adenocarcinoma, lung Anxiety Wells esophagus Benign prostate hyperplasia Crohns disease dx age 23 GERD (gastroesophageal reflux disease) History of kidney stones History of squamous cell carcinoma skin cancer Hyperlipidemia Hypertension Osteoarthritis Surgical History (Updated 05/14/20 @ 18:31 by Michelet Landry) History of carpal tunnel surgery of left wrist ULNAR NERVE TRANSPOSITION History of colon surgery BOWEL RESECTION 1997 [facility] History of squamous cell carcinoma excision Hx of arthroscopy of right knee Hx of cholecystectomy 1997 Hx of colonoscopy Hx of lithotripsy S/P bronchoscopy with biopsy (08/02/19) Endobronchial Ultrasound Bronchoscopy Navigational with Biopsies Dr. Diaz 08/02/19 [facility] S/P lobectomy of lung LLL S/P small bowel resection ~12 inches, Dr Cornelius Gómez, [facility]; 2nd Crohn's; 04/29/20 Status post lobectomy of lung (08/14/19) Navigational Bronchoscopy with ICG Markings Robotic Left Video Assisted Thoracoscopy with Left Lower Lobe Wedge Resection, Left Lower Lobectomy with Mediastinal Lyphadenectomy Dr. Diaz 08/14/19 Family History Father , age 62 from prostate ca Prostate cancer Hypertension Mother , age 83 Hypertension Social History Smoking Status: Never smoker (DENIES TOBACCO USE; MARIJUANA 2XWEEKLY FOR 20 YEARS) Second Hand Exposure: No; Do You Dip or Chew Tobacco: No; Hx Alcohol Use: Yes Alcohol type: beer and wine Alcohol Intake Frequency: Monthly or Less Hx Substance Use: No Preferred Language: Italian Communication Ability: Effective Cold Saw Operator Required: No Beliefs That Will Affect Care: None marital status: Current Living Situation: Spouse current occupational status: retired 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 Other Information That Helps Us Care for You: No Feels Safe at Home: Yes Safety Concerns: Feels Safe At This Time Childhood Exposure to Second-Hand Smoke: Yes Review of Systems Constitutional: + chills; no fever Respiratory: no dyspnea Cardiovascular: no chest pain Gastrointestinal: + abdominal pain (central abdominal pain), + nausea, + vomiting and + cramping; no change in bowel habits and no blood in stools no pain with eating Genitourinary: + flank pain (R); no dysuria and no hematuria Physical Exam Physical Exam: awake/alert Constitutional: well developed and well nourished; no acute distress Respiratory: normal respiratory effort Gastrointestinal (Abdomen): Inspection/Auscultation: + abdominal surgical scar (midline incision- healing well, no sign of infection or erythema); abdomen not distended Percussion/Palpation: + abdomen tender (ttp to the right side of midline incision ) and abdomen soft PG Care Time/CCT Total # of Minutes Spent Total Time Spent with Patient: Total time spent is greater than 50% in coordination of care (as documented) at patient's floor/unit and/or counseling patient: Coding Level of Care Code 34487 Inpt Consult Level 3 Diagnoses Superior mesenteric vein thrombosis K55.069
[2020-05-14] MEDS ORDERED: LIDOCAINE HCL 2% 2 ML VIAL/AMP(20MG/ML) INFIL ONE (18:14)
[2020-05-14] MEDS ORDERED: ONDANSETRON INJ 2 MG/ML 2 ML VIAL ONE (18:14)
[2020-05-14] MEDS ORDERED: PROPOFOL IV EMULSION 10 MG/ML 20 ML VIAL IV ONE (18:14)
[2020-05-14] MEDS ORDERED: MIDAZOLAM HCL 1 MG/ML 2ML VIAL ONE ×2 (18:15→19:07)
[2020-05-14] MEDS ORDERED: fentaNYL citrate 100 MCG/2 ML VIAL ONE (18:15)
[2020-05-14] MEDS ORDERED: Heparin IV Standard *NO* Bolus IV SCH (18:15)
--- NOTE | 2020-05-14 18:26 | Urology Consultation ---
Date of Consultation May 14, 2020 Assessment & Plan (1) Right ureteral stone: Right stent placement followed by anticoagulation Patient will be scheduled subsequently for right ureteroscopy History of Present Illness Reason for Consultation: Patient is a 60-year-old male with a previous history of stones status post previous ESWL several times. Patient has not been seen by urology for several years. Patient 2 weeks ago had bowel surgery with some of the small bowel resected for Crohn's disease at [place]. He has been having some low-grade abdominal pain and also some low-grade right flank pain. This morning his right flank pain became severe went to the emergency room in [place] and had a CAT scan that showed a 1 cm proximal ureteral stone patient denies any fever. Patient was transferred to the hospitalist from the emergency room in [place] and upon arrival it was found that he had a mesenteric thrombosis in addition to his stone. I discussed with vascular surgeon will place a stent WINSTON and he will subsequently be anticoagulated. Explained to the patient that after the stent has been in for a while his ureters expanded he will need to have ureteroscopy Attending Physician: Michelet Landry History of Present Illness Please see above Allergies Allergy/AdvReac Type Severity Reaction Status Date / Time No Known Allergies Allergy Verified 10/07/19 14:20 Home Medications Home Medications Medication Instructions Recorded Confirmed Type aspirin 81 mg tablet,delayed 81 mg PO QAM tab 06/07/19 05/14/20 History release cyanocobalamin (vitamin B-12) 1,000 mcg PO QAM tab 06/07/19 05/14/20 History 1,000 mcg tablet,extended release lisinopril 5 mg tablet 5 mg PO QAM tab 06/07/19 05/14/20 History lorazepam 0.5 mg tablet 0.5 mg PO DAILY tab 06/07/19 05/14/20 History mesalamine 0.375 gram 0.75 g PO BID cap 06/07/19 05/14/20 History capsule,extended release 24 hr multivitamin 1 tab PO DAILY 06/07/19 05/14/20 History omeprazole 40 mg capsule,delayed 40 mg PO QAM cap 06/07/19 05/14/20 History release sertraline 50 mg tablet 50 mg PO HS tab 06/07/19 05/14/20 History zolpidem 10 mg tablet 10 mg PO HS PRN tab 06/07/19 05/14/20 History atorvastatin 20 mg tablet 20 mg PO HS 06/19/19 05/14/20 History oxycodone-acetaminophen 5 mg-325 1 tab PO Q4H PRN tab 10/07/19 05/14/20 History mg tablet adalimumab [Humira(CF) Pen] mg SUBCUT 05/14/20 History metronidazole 05/14/20 History oxycodone 5 mg PO Q4 PRN 05/14/20 05/14/20 History tamsulosin [Flomax] 0.4 mg PO DAILY 05/14/20 05/14/20 History Patient History Medical History Adenocarcinoma, lung Anxiety Wells esophagus Benign prostate hyperplasia NO PROBLEMS AT CURRENT Crohns disease dx age 23 GERD (gastroesophageal reflux disease) History of kidney stones History of squamous cell carcinoma skin cancer Hypertension Osteoarthritis Surgical History History of carpal tunnel surgery of left wrist ULNAR NERVE TRANSPOSITION History of colon surgery BOWEL RESECTION 1997 FOR [facility] History of squamous cell carcinoma excision Hx of arthroscopy of right knee Hx of cholecystectomy 1997 Hx of colonoscopy Hx of lithotripsy S/P bronchoscopy with biopsy (08/02/19) Endobronchial Ultrasound Bronchoscopy Navigational with Biopsies Dr. Diaz 08/02/19 [facility] S/P lobectomy of lung LLL Status post lobectomy of lung (08/14/19) Navigational Bronchoscopy with ICG Markings Robotic Left Video Assisted Thoracoscopy with Left Lower Lobe Wedge Resection, Left Lower Lobectomy with Mediastinal Lyphadenectomy Dr. 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 Feels Safe at Home: Yes Childhood Exposure to Second-Hand Smoke: Yes Review of Systems Review of Systems: All systems reviewed & are unremarkable except as noted in HPI & below Physical Exam Constitutional: well developed Eyes: PERRL, conjunctivae normal, anicteric sclerae ENMT: external ear and nose normal, oropharynx normal Neck: trachea midline, no thyromegaly Respiratory: normal respiratory effort Cardiovascular: Extremities: no pedal edema Gastrointestinal (Abdomen): Percussion/Palpation: + abdomen tender Musculoskeletal: no cyanosis or clubbing, extremities motor strength 5/5 Skin: no rashes, warm and dry Neurologic: CN's II-XI intact bilaterally Psychiatric: A+Ox3, euthymic affect Genitourinary: + CVA tenderness (Right side) Lymphatic: no cervical or axillary lymphadenopathy PG Care Time/CCT Total # of Minutes Spent Total Time Spent with Patient: Total time spent is greater than 50% in coor dination of care (as documented) at patient's floor/unit and/or counseling patient: Coding Level of Care Code 87859 Inpt Consult Level 4 Diagnoses Right ureteral stone N20.1
--- NOTE | 2020-05-14 18:58 | Anesthesiology Consultation ---
Date of Service May 14, 2020 Assessment & Plan (1) Encounter for pre-operative examination: Chart Review Chart Review: Acceptable Risk for Surgery and Patient NOT seen in Pre Admission Testing Consults Requested none ASA ASA3 Proposed Anesthesia Anesthesia Type: MAC Risk / Benefits Reviewed With: PT / POA / Parent / Guardian, Accepts Plan and Informed Consent Obtained History Surgery Operation Date: 05/14/20 07:15 Proposed Procedures p Cystoscopy Retrograde - Delmar Rosado MD Height/Weight Height: 5 ft 11 in Weight: 78.018 kg Allergies Allergy/AdvReac Type Severity Reaction Status Date / Time No Known Allergies Allergy Verified 10/07/19 14:20 Medications Home Medications Medication Instructions Recorded Confirmed Last Taken aspirin 81 mg tablet,delayed 81 mg PO QAM tab 06/07/19 05/14/20 05/13/20 08:00 release cyanocobalamin (vitamin B-12) 1,000 mcg PO QAM tab 06/07/19 05/14/20 05/13/20 08:00 1,000 mcg tablet,extended release lisinopril 5 mg tablet 5 mg PO QAM tab 06/07/19 05/14/20 05/13/20 08:00 lorazepam 0.5 mg tablet 0.5 mg PO DAILY tab 06/07/19 05/14/20 2 Weeks Ago ~04/30/20 mesalamine 0.375 gram 0.75 g PO BID cap 06/07/19 05/14/20 05/13/20 21:00 capsule,extended release 24 hr multivitamin 1 tab PO DAILY 06/07/19 05/14/20 05/13/20 08:00 omeprazole 40 mg capsule,delayed 40 mg PO QAM cap 06/07/19 05/14/20 05/13/20 08:00 release sertraline 50 mg tablet 50 mg PO HS tab 06/07/19 05/14/20 05/13/20 21:00 zolpidem 10 mg tablet 10 mg PO HS PRN tab 06/07/19 05/14/20 05/13/20 21:00 atorvastatin 20 mg tablet 20 mg PO HS 06/19/19 05/14/20 05/13/20 08:00 oxycodone-acetaminophen 5 mg-325 1 tab PO Q4H PRN tab 10/07/19 05/14/20 Unknown mg tablet adalimumab [Humira(CF) Pen] mg SUBCUT 05/14/20 Unknown metronidazole 05/14/20 05/13/20 21:00 oxycodone 5 mg PO Q4 PRN 05/14/20 05/14/20 05/13/20 21:00 tamsulosin [Flomax] 0.4 mg PO DAILY 05/14/20 05/14/20 05/13/20 Active Medications Generic Name Dose Route Start Last Admin Trade Name Freq PRN Reason Stop Dose Admin Ciprofloxacin 400 mg in 200 mls @ 100 mls/hr 05/14/20 17:00 05/14/20 17:25 Cipro / D5w IV 05/24/20 16:59 100 mls/hr Q12H GENO Administration Metronidazole 500 mg in 100 mls @ 100 mls/hr 05/14/20 17:00 05/14/20 18:24 Flagyl IV 05/24/20 16:59 Infused Q8H GENO Infusion Morphine Sulfate 2 mg 05/14/20 16:17 05/14/20 16:46 Morphine Sulfate IV 05/28/20 16:16 2 mg Q3H PRN Administration Pain NPO Date Last Intake of Fluids: 05/14/20 Time Last Intake of Fluids: 17:30 Last Intake of Fluids Comment: enough water for pills Date Last Intake of Solids: 05/13/20 Time Last Intake of Solids: 18:00 Past Medical History Medical History (Updated 05/14/20 @ 18:36 by Michelet Landry) Adenocarcinoma, lung Anxiety Wells esophagus Benign prostate hyperplasia Crohns disease dx age 23 GERD (gastroesophageal reflux disease) History of kidney stones History of squamous cell carcinoma skin cancer Hyperlipidemia Hypertension Osteoarthritis Exercise / Class Metabolic Activity II 4-5 Yardwork/Stairs/Walk up hill Past Family History Family History Father , age 62 from prostate ca Prostate cancer Hypertension Mother , age 83 Hypertension Past Surgical History Surgical History (Updated 05/14/20 @ 18:31 by Michelet Landry) History of carpal tunnel surgery of left wrist ULNAR NERVE TRANSPOSITION History of colon surgery BOWEL RESECTION 1997 [facility] History of squamous cell carcinoma excision Hx of arthroscopy of right knee Hx of cholecystectomy 1997 Hx of colonoscopy Hx of lithotripsy S/P bronchoscopy with biopsy (08/02/19) Endobronchial Ultrasound Bronchoscopy Navigational with Biopsies Dr. Diaz 08/02/19 [facility] S/P lobectomy of lung LLL S/P small bowel resection ~12 inches, Dr Cornelius Gómez, [facility]; 2nd Crohn's; 04/29/20 Status post lobectomy of lung (08/14/19) Navigational Bronchoscopy with ICG Markings Robotic Left Video Assisted Thoracoscopy with Left Lower Lobe Wedge Resection, Left Lower Lobectomy with Mediastinal Lyphadenectomy Dr. Diaz 08/14/19 Past Anesthesia History No Hx of Anesthesia Complications and No Family Hx of Anesthesia Complications History of PONV No Hx of PONV and No Hx of Motion Sickness Social History Smoking Status: Never smoker (DENIES TOBACCO USE; MARIJUANA 2XWEEKLY FOR 20 YEARS) Hx Alcohol Use: Yes Alcohol type: beer and wine alcohol intake frequency: holidays/special occasions only Hx Substance Use: No substance use type: does not use Physical Exam Vital Signs Last Vital Signs Temp 37.4 C 05/14/20 18:46 Pulse 57 L 05/14/20 18:46 Resp 18 05/14/20 18:46 BP 132/73 05/14/20 18:46 Pulse Ox 98 05/14/20 18:46 ENMT Mouth: no dentition abnormality Thyromental Distance: > or= 3.5 Finger Breadths Mallampati Class: II Neck normal visual inspection Respiratory normal respiratory effort Auscultation: lungs clear to auscultation bilaterally Cardiovascular Rate/Rhythm: regular rate and regular rhythm Psychiatric Orientation: alert
--- NOTE | 2020-05-14 19:28 | Post Operative Brief Note ---
PG Immediate Post Op with CF Date of Surgery May 14, 2020 Pre & Post Diagnosis Operation Date: 05/14/20 07:15 Pre-Op Diagnosis: OBSTRUCTIVE KIDNEY STONE right side Post-Op Diagnosis: OBSTRUCTIVE KIDNEY STONE right side I identified the patient and participated in the time-out.: Yes Procedure Operation Date: 05/14/20 07:15 Actual Procedures p Cystoscopy Retrograde and right stent placement (Right) - Delmar Rosado MD Surgeon Delmar Rosado MD Fashion Illustrator none Estimated Blood Loss 0 Findings Consistent with Post-Op Diagnosis Specimens Specimen Description: none per surgeon
--- NOTE | 2020-05-14 19:41 | Fluoroscopy Report ---
FL retrograde includes kub CLINICAL HISTORY: CYSTO/STENT COMPARISON STUDY: None FLUOROSCOPY TIME: 21 seconds NUMBER OF FLUOROSCOPIC IMAGES: 2 FINDINGS: As below IMPRESSION: Image intensifier support for right ureteral retrograde examination followed by stent lani cement. ACT 112: Negative or not required by law. The above report was generated using voice recognition software. It may contain grammatical, syntax or spelling errors. Electronically signed by: Martinez Maradiaga M.D. 05/14/2020 7:40 PM
--- NOTE | 2020-05-14 19:54 | Anesthesiology Progress Note ---
Date of Service May 14, 2020 Anesthesia Post Procedure Vital Signs Vital Signs: Temp Pulse Pulse Pulse Resp BP Pulse Ox 05/14/20 19:50 36.3 C L 56 L 16 120/80 99 05/14/20 19:40 59 L 18 113/70 98 05/14/20 19:32 36.4 C L 60 12 118/72 97 05/14/20 18:46 37.4 C 57 L 18 132/73 98 05/14/20 15:15 37 C 56 L 22 125/78 99 05/14/20 15:00 37 C 56 L 20 125/78 99 Pain Intensity Right Lower Abdomen: Pain Intensity: 7 Right Flank: Pain Intensity: 6 Abdomen: Pain Intensity: 2 Transfer of Care Handoff Completed per policy Notes Mental Status: alert / awake / arousable Patient Amnestic to Procedure: Yes Nausea / Vomiting: adequately controlled Pain: adequately controlled Airway Patency, RR, SpO2: stable & adequate BP & HR: stable & adequate Hydration State: stable & adequate Anesthetic Complications: no major complications apparent
[2020-05-14 21:19] LABS: Partial Thromboplastin Time 28.9 Seconds (21.0-31.0)
[2020-05-14] MEDS: NSS + 20MEQ KCL 20 MEQ/1,000 ML BAG IV SCH (21:33)
[2020-05-14] MEDS: SERTRALINE HCL 50 MG TABLET PO SCH (21:34)
[2020-05-14] MEDS: ATORVASTATIN 20 MG TAB PO SCH ×2 (21:34→21:35)
[2020-05-14] MEDS: OXYCODONE HCL IR 5 MG TAB (IMMEDIATE RELEASE) PO PRN (21:35)
[2020-05-14] MEDS: HEPARIN SODIUM/DEXTROSE 25,000 UNITS/500 ML BAG IV SCH (21:50)
--- NOTE | 2020-05-14 22:43 | Operative Report (OR) ---
DATE OF OPERATION: 05/14/2020 PREOPERATIVE DIAGNOSIS: Right proximal ureteral stone. POSTOPERATIVE DIAGNOSIS: Right proximal ureteral stone. SURGEON: Delmar Rosado MD. ANESTHESIA: Sedation. INDICATIONS: The patient is a 60-year-old male status post recent small bowel resection for Crohn's disease who presented to the Emergency Room this morning with right flank pain. He does have a history of stones. A CAT scan was done which showed a proximal ureteral stone. He was transferred to [place] from [facility] where he was found here that he had also mesenteric thrombosis. I was asked to see the patient and we coordinated with Dr. Landry to place a stent immediately so that he could be anticoagulated and then would subsequently after several weeks after the ureter has been dilated go back and do ureteroscopy to remove the stone. DESCRIPTION OF THE PROCEDURE: The patient was taken to the operating room after he was consented. He has had Venodyne stockings placed. He had been given Cipro preoperatively. He was placed in the dorsal lithotomy position and sedation was given. A 21-Namibian scope was passed in the urethra. The patient's prostate was somewhat large and obstructing. He did have a trabeculated bladder. The right ureteral orifice was visualized. Retrograde was performed. There was a dilated system and it appeared that there was stone in the proximal ureter, although it was difficult to see with the contrast. It did appear that passing the guidewire, the stone appeared to fall back into the kidney and then a 5-Namibian 26 cm stent was passed into the right renal pelvis under fluoroscopy and there was a good curl left in the bladder. At the end of the procedure, the bladder was emptied and the scope was removed. The patient was transferred to the recovery room in stable condition. I attest to the content of the Intraoperative Record and any orders documented therein. Any exception s are noted below.
[2020-05-15] MEDS: metroNIDAZOLE 500 MG/100 ML BAG IV SCH ×3 (00:29→16:50)
[2020-05-15] MEDS: ACETAMINOPHEN 325 MG TAB PO PRN ×3 (00:33→20:56)
[2020-05-15] MEDS: OXYCODONE HCL IR 5 MG TAB (IMMEDIATE RELEASE) PO PRN ×4 (01:38→20:56)
[2020-05-15 04:25] LABS: Basophils # (auto) 0.05 K/uL (0-0.2); Basophils % (auto) 0.5 %; Eosinophils # (auto) 0.37 K/uL (0-0.5); Eosinophils % (auto) 3.6 %; Hematocrit (blood only) 30.5 % (42-52); Hemoglobin 10.1 g/dL (14.0-18.0); Immature Granulocytes # (auto) 0.01 K/uL (0.00-0.02); Immature Granulocytes % (auto) 0.1 %; Lymphocytes # (auto) 3.83 K/uL (1.2-3.4); Mean Corpuscular Hemoglobin 26.7 pg (25-34); Mean Corpuscular Hgb Conc 33.1 g/dL (32-36); Mean Corpuscular Volume 80.7 fL (80-100); Mean Platelet Volume 8.5 fL (7.4-10.4); Monocytes # (auto) 0.88 K/uL (0.11-0.59); Monocytes % (auto) 8.5 %; Neutrophils # (auto) 5.21 K/uL (1.4-6.5); Neutrophils % (auto) 50.3 %; Platelet Count 455 K/uL (130-400); RDW Coefficient of Variation 16.3 % (11.5-14.5); RDW Standard Deviation 47.8 fL (36.4-46.3); Red Blood Count 3.78 M/uL (4.7-6.1); White Blood Count 10.35 K/uL (4.8-10.8)
[2020-05-15 04:34] LABS: Partial Thromboplastin Ratio 1.4; Partial Thromboplastin Time 39.7 Seconds (21.0-31.0)
[2020-05-15 04:43] LABS: BUN Creatinine Ratio 12.8 (10-20); Calcium 8.1 mg/dl (8.5-10.1); Creatinine Clr Calc Pharmacy 102.1 ml/min; Est GFR (African American) 111.6; Est GFR (Non-African American) 96.3; Potassium 3.3 mmol/L (3.5-5.1)
[2020-05-15] MEDS: OXYCODONE/ACETAMINOPHEN 5mg/325mg TAB PO PRN ×2 (04:56→23:24)
[2020-05-15] MEDS: CIPROFLOXACIN / D5W 400 MG/200 ML BAG IV SCH ×2 (04:56→16:50)
[2020-05-15] MEDS: NSS + 20MEQ KCL 20 MEQ/1,000 ML BAG IV SCH ×2 (04:56→10:51)
[2020-05-15] MEDS ORDERED: HEPARIN IV BOLUS 6,000 UNITS in SYRINGE 0 ML IV ONE (05:00)
[2020-05-15] MEDS ORDERED: PANTOprazole 40 MG TAB PO SCH (09:00)
[2020-05-15] MEDS: MULTIVITAMIN TAB PO SCH (09:04)
[2020-05-15] MEDS: LORazepam 0.5 MG TAB PO SCH ×2 (09:04→09:44)
[2020-05-15] MEDS: TAMSULOSIN HCL 0.4 MG CAP PO SCH (09:05)
[2020-05-15] MEDS: lisinopriL 5 MG TAB PO SCH (09:05)
[2020-05-15] MEDS: PANTOprazole 40 MG TAB PO SCH (09:05)
[2020-05-15] MEDS: CYANOCOBALAMIN 500 MCG TABLET (VITAMIN B-12) PO SCH (09:05)
[2020-05-15] MEDS: ASPIRIN 81 MG ECTAB PO SCH (09:06)
[2020-05-15] MEDS: POTASSIUM CHLORIDE 20 MEQ TABCR PO SCH ×3 (09:06→20:58)
--- NOTE | 2020-05-15 10:31 | Surgery Progress Note ---
Date of Service May 15, 2020 Assessment & Plan (1) Superior mesenteric vein thrombosis: Patient s/[place] bowel [place] [facility] [place] admitted yesterday with SMV thrombus and obstructing R kidney stone -Patient s/p R ureteral stent placement yesterday -Heparin gtt has since been started for management of SMV thrombus -Still with some abdominal pain, not worsening. He is tolerating diet without issues. -No plans for surgical intervention from our standpoint unless there is concern for deterioration and bowel compromise -Continue current treatment with anticoagulation -[facility] covering over the weekend Subjective Patient states he is feeling well. Says R flank pain is 80% improved s/p urologic procedure yesterday. He still endorses some abdominal pain. Has been tolerating a diet without n/v. Physical Exam Physical Exam: awake/alert Respiratory: normal respiratory effort Gastrointestinal (Abdomen): Inspection/Auscultation: abdomen not distended Percussion/Palpation: + abdomen tender (ttp right side of midline incision) and abdomen soft Results & Data Vital Signs (Past 12 Hours) Vital Signs Temp Pulse Pulse Resp BP Pulse Ox 05/15/20 07:29 36.4 C L 48 L 16 145/79 H 99 05/15/20 03:54 36.7 C 50 L 20 143/80 H 97 05/14/20 23:00 36.7 C 54 L 16 116/66 97 PG Care Time/CCT Total # of Minutes Spent Total Time Spent with Patient: Total time spent is greater than 50% in coordination of care (as documented) at patient's floor/unit and/or counseling patient: Coding Level of Care Code 51953 Subseq Hosp Care Lvl 1 Diagnoses Superior mesenteric vein thrombosis K55.069
[2020-05-15 11:20] LABS: Partial Thromboplastin Ratio 3.6
[2020-05-15 11:38] LABS: Partial Thromboplastin Time 99.5 Seconds (21.0-31.0)
--- NOTE | 2020-05-15 11:58 | Urology Progress Note ---
Date of Service May 15, 2020 Assessment & Plan (1) Nephrolithiasis: Assessment #1 right ureteral calculus-doing well post stent placement Follow-up after discharge in our office to schedule definitive treatment Subjective Patient is postop day 1 from stent placement for a 12 mm proximal ureteral stone. He is afebrile vital signs are stable No complaints offered he says his pain is pretty much resolved. He is voiding without difficulty. Not having too much discomfort from the stent. Assessment right ureteral calculus now post stent placement Patient should follow-up in our office after discharge to schedule definitive treatment for the ureteral stone Physical Exam Physical Exam: Constitutional Well-developed well-nourished In no acute distress, Healthy appearing Neuro/psych Alert and oriented x3 Normal mood Normal affect Normal coordination Skin Normal color Normal turgor No rashes Warm and Dry Neck Normal visual inspection Pulmonary Normal rhythm and effort No respiratory distress No audible wheezes Able to speak in complete sentences Cardiac No peripheral edema Results & Data Vital Signs (Past 12 Hours) Vital Signs Temp Pulse Pulse Resp BP Pulse Ox 05/15/20 07:29 36.4 C L 48 L 16 145/79 H 99 05/15/20 03:54 36.7 C 50 L 20 143/80 H 97 PG Care Time/CCT Total # of Minutes Spent Total Time Spent with Patient: Total time spent is greater than 50% in coordination of care (as documented) at patient's floor/unit and/or counseling patient: Coding Level of Care Code 10742 Subseq Hosp Care Lvl 1 Diagnoses Nephrolithiasis N20.0
[2020-05-15] MEDS: HEPARIN SODIUM/DEXTROSE 25,000 UNITS/500 ML BAG IV SCH (14:09)
--- NOTE | 2020-05-15 17:19 | Hospitalist Progress Note ---
Date of Service May 15, 2020 Assessment & Plan (1) Urinary tract obstruction by kidney stone: POD #1 s/p right ureteral stent placement by Dr Rosado for proximal right- sided 12mm ureteral stone with associated hydronephrosis. Doing well from urology standpoint. Can stop IV fluids. Cont flomax. Cont pain meds. Will need definitive stone treatment after d/c. Call [facility] in am about ?urine culture. (2) Superior mesenteric vein thrombosis: This is the likely cause of his anterior abdominal pain that is to the right of his midline incision. Risk factors - inflammation from Crohn's disease, recent surgery, etc. Can't rule out hereditary factors as his father and 2 siblings have had VTE. Will send genetic w/u in am. Cont heparin drip. Start coumadin 7.5mg daily. PTT and INR in am. Lovenox bridge with coumadin at d/c? Will need 6 months of Rx. Gen surg consult appreciated. Cont cipro/flagyl for now. (3) Crohns disease: Long-standing diagnosis. On biological agent and mesalamine. Recent small bowel resection at on 04/29/20. Continue mesalamine. (4) Wells esophagus: Cont PPI daily. (5) GERD (gastroesophageal reflux disease): PPI daily. (6) Hypertension: Controlled. Hold SANDRA in the setting of obstructing stone. (7) Benign prostate hyperplasia: Cont flomax. (8) Hypokalemia: Replace, repeat BMP am. mag at [facility] was wnl. (9) Hyperlipidemia: Cont statin (10) DVT prophylaxis: heparin drip w/ coumadin updated by phone Admission and Anticipated Discharge Date Admission Date: May 14, 2020 Subjective patient overall feeling well. minor hematuria. no right flank pain. right abdominal pain from SMV thrombosis remains - no better, no worse. eating well - does NOT make pain worse. no dysuria. no dyspnea. Review of Systems Constitutional: no fever, no chills, no fatigue and no anorexia Respiratory: no cough and no dyspnea Cardiovascular: no chest pain, no dyspnea at rest and no dyspnea on exertion Physical Exam Constitutional: well developed and well nourished; no acute distress and no altered mental status ENMT: external ear and nose normal, oropharynx normal Respiratory: normal respiratory effort, lungs clear to auscultation Cardiovascular: Rate/Rhythm: regular rate and regular rhythm Heart Sounds: normal S1 and normal S2; no murmur Vessels: posterior tibial pulses present and dorsalis pedis pulses present; no JVD Extremities: no edema Gastrointestinal (Abdomen): Inspection/Auscultation: normal bowel sounds; abdomen not distended Percussion/Palpation: + abdomen tender (right side of abdomen to R of midline incision - no change ) and abdomen soft; no guarding and no hepatosplenomegaly Musculoskeletal: no flank pain right w/ palpation Skin: midline incision on abdomen c/d/i Psychiatric: A+Ox3, euthymic affect Results & Data Results & Data ([facility] Vital Signs (Past 12 Hours) Vital Signs Temp Pulse Pulse Resp BP Pulse Ox 05/15/20 15:40 36.8 C 51 L 16 121/72 98 05/15/20 07:29 36.4 C L 48 L 16 145/79 H 99 Laboratory Results Laboratory Results - last 24 hr 05/14/20 05/15/20 05/15/20 20:52 03:58 03:58 WBC 10.35 RBC 3.78 L Hgb 10.1 L Hct 30.5 L MCV 80.7 MCH 26.7 MCHC 33.1 RDW Std Deviation 47.8 H RDW Coeff of Faiza 16.3 H Plt Count 455 H MPV 8.5 Immature Gran % (Auto) 0.1 Neut % (Auto) 50.3 Lymph % (Auto) 37.0 Rapides % (Auto) 8.5 Eos % (Auto) 3.6 Baso % (Auto) 0.5 Neut # (Auto) 5.21 Lymph # (Auto) 3.83 H Rapides # (Auto) 0.88 H Eos # (Auto) 0.37 Baso # (Auto) 0.05 Immature Gran # (Auto) 0.01 APTT 28.9 39.7 H PTT Ratio 1.0 1.4 Sodium Potassium Chloride Carbon Dioxide Anion Gap BUN Creatinine Est Cr Clr Drug Dosing Est GFR ( Amer) Est GFR (Non-Af Amer) BUN/Creatinine Ratio Glucose Calcium 05/15/20 05/15/20 03:58 10:43 WBC RBC Hgb Hct MCV MCH MCHC RDW Std Deviation RDW Coeff of Faiza Plt Count MPV Immature Gran % (Auto) Neut % (Auto) Lymph % (Auto) Rapides % (Auto) Eos % (Auto) Baso % (Auto) Neut # (Auto) Lymph # (Auto) [place] # (Auto) Eos # (Auto) Baso # (Auto) Immature Gran # (Auto) APTT 99.5 H* PTT Ratio 3.6 Sodium 142 Potassium 3.3 L Chloride 113 H Carbon Dioxide 22 Anion Gap 7.0 BUN 11 Creatinine 0.83 Est Cr Clr Drug Dosing 102.1 Est GFR ( Amer) 111.6 Est GFR (Non-Af Amer) 96.3 BUN/Creatinine Ratio 12.8 Glucose 100 H Calcium 8.1 L PG Care Time/CCT Total # of Minutes Spent Total Time Spent with Patient: Total time spent is greater than 50% in coordination of care (as documented) at patient's floor/unit and/or counseling patient: Coding Level of Care Code 56791 Subseq Hosp Care Lvl 2 Diagnoses Urinary tract obstruction by kidney stone N20.0; N13.8 Superior mesenteric vein thrombosis K55.069 Crohns disease K50.019 Digestive disease complication type: unspecified complication Gastrointestinal tract location: small intestine Wells esophagus K22.70 Wells's esophagus type: without dysplasia GERD (gastroesophageal reflux disease) K21.9 Esophagitis presence: esophagitis presence not specified Hypertension I10 Hypertension type: essential hypertension Benign prostate hyperplasia N40.0 Lower urinary tract symptom presence: symptoms absent Hypokalemia E87.6 Hyperlipidemia E78.2 Hyperlipidemia type: mixed hyperlipidemia DVT prophylaxis Z29.9 (1) Benign prostate hyperplasia Lower urinary tract symptom presence: symptoms absent Qualified Code(s): N40.0 - Benign prostatic hyperplasia without lower urinary tract symptoms (2) Crohns disease Digestive disease complication type: unspecified complication Gastrointestinal tract location: small intestine Qualified Code(s): K50.019 - Crohn's disease of small intestine with unspecified complications (3) Hyperlipidemia Hyperlipidemia type: mixed hyperlipidemia Qualified Code(s): E78.2 - Mixed hyperlipidemia (4) GERD (gastroesophageal reflux disease) Esophagitis presence: esophagitis presence not specified Qualified Code(s): K21.9 - Gastro-esophageal reflux disease without esophagitis (5) Wells esophagus Wells's esophagus type: without dysplasia Qualified Code(s): K22.70 - Wells's esophagus without dysplasia (6) Hypertension Hypertension type: essential hypertension Qualified Code(s): I10 - Essential (primary) hypertension
[2020-05-15 18:11] LABS: INR 1.1 (0.9-1.1); Partial Thromboplastin Ratio 1.8; Prothrombin Time 11.7 Seconds (9.0-12.0)
[2020-05-15 18:14] LABS: Partial Thromboplastin Time 49.5 Seconds (21.0-31.0)
[2020-05-15] MEDS: WARFARIN SOD 7.5 MG TAB PO SCH (19:22)
[2020-05-15] MEDS: SERTRALINE HCL 50 MG TABLET PO SCH (20:57)
[2020-05-15] MEDS: ATORVASTATIN 20 MG TAB PO SCH (20:58)
[2020-05-16] MEDS: metroNIDAZOLE 500 MG/100 ML BAG IV SCH ×2 (01:12→09:29)
[2020-05-16] MEDS: CIPROFLOXACIN / D5W 400 MG/200 ML BAG IV SCH (05:35)
[2020-05-16 06:22] LABS: INR 1.2 (0.9-1.1); Partial Thromboplastin Ratio 1.8; Prothrombin Time 12.3 Seconds (9.0-12.0)
[2020-05-16 06:30] LABS: Partial Thromboplastin Time 49.1 Seconds (21.0-31.0)
[2020-05-16 06:43] LABS: BUN Creatinine Ratio 7.5 (10-20); Calcium 8.7 mg/dl (8.5-10.1); Est GFR (African American) 117.7; Est GFR (Non-African American) 101.5; Potassium 3.1 mmol/L (3.5-5.1)
[2020-05-16] MEDS: HEPARIN SODIUM/DEXTROSE 25,000 UNITS/500 ML BAG IV SCH (06:50)
[2020-05-16] MEDS: OXYCODONE HCL IR 5 MG TAB (IMMEDIATE RELEASE) PO PRN (07:32)
[2020-05-16] MEDS: POTASSIUM CHLORIDE 20 MEQ TABCR PO SCH ×2 (09:30→14:16)
[2020-05-16] MEDS: MULTIVITAMIN TAB PO SCH (09:30)
[2020-05-16] MEDS: TAMSULOSIN HCL 0.4 MG CAP PO SCH (09:30)
[2020-05-16] MEDS: CYANOCOBALAMIN 500 MCG TABLET (VITAMIN B-12) PO SCH (09:30)
[2020-05-16] MEDS: lisinopriL 5 MG TAB PO SCH (09:31)
[2020-05-16] MEDS: PANTOprazole 40 MG TAB PO SCH (09:31)
[2020-05-16] MEDS: ASPIRIN 81 MG ECTAB PO SCH (09:31)
[2020-05-16] MEDS: LORazepam 0.5 MG TAB PO SCH (09:31)
[2020-05-16] MEDS: OXYCODONE/ACETAMINOPHEN 5mg/325mg TAB PO PRN (09:46)
[2020-05-16] MEDS ORDERED: ENOXAPARIN 80 MG/0.8 ML SYR SQ SCH (10:00)
[2020-05-16] MEDS: MoRPHine SULFATE 2 MG/ML CARP IV PRN (10:53)
--- NOTE | 2020-05-16 12:05 | Surgery Progress Note ---
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 It has not increased No evidence of ischemia at the present time White blood cell count normal No nausea or vomiting Continue present diet Ureteral calculi as per urology Subjective Still with some pain mostly to the right of the incision. From a severity standpoint is unchanged. He denies nausea and vomiting. He had a bowel movement. Physical Exam Gastrointestinal (Abdomen): Inspection/Auscultation: + abdominal surgical incision (Clean, dry and intact); abdomen not distended Percussion/Palpation: + abdomen tender (Mostly to the right of the incision that is mild) and abdomen soft Results & Data Vital Signs (Past 12 Hours) Vital Signs Temp Pulse Resp BP Pulse Ox 05/16/20 06:57 36.8 C 58 L 16 122/61 97 Laboratory Results 05/16/20 05/16/20 05/16/20 Range/Units 05:44 05:44 05:44 PT 12.3 H (9.0-12.0) Seconds INR 1.2 H (0.9-1.1) APTT 49.1 H* (21.0-31.0) Seconds PTT Ratio 1.8 Factor V Leiden Mutat Pending Factor V Leiden Interp Pending Sodium (136-145) mmol/L Potassium (3.5-5.1) mmol/L Chloride (98-107) mmol/L Carbon Dioxide (21-32) mmol/L Anion Gap (3-11) BUN (7-18) mg/dl Creatinine (0.6-1.4) mg/dl Est Cr Clr Drug Dosing ml/min Est GFR ( Amer) Est GFR (Non-Af Amer) BUN/Creatinine Ratio (10-20) Glucose (70-99) mg/dl Calcium (8.5-10.1) mg/dl Homocysteine Pending Beta-2-GPI IgG Ab Pending Beta-2-GPI IgM Ab Pending Anti-Cardiolipin IgG Ab Pending Anti-Cardiolipin IgM Ab Pending Prothrombin Gene Mutate Pending Prothromb Gene Comment Pending 05/16/20 05/15/20 Range/Units 05:44 17:38 PT 11.7 (9.0-12.0) Seconds INR 1.1 (0.9-1.1) APTT 49.5 H* (21.0-31.0) Seconds PTT Ratio 1.8 Factor V Leiden Mutat Factor V Leiden Interp Sodium 139 (136-145) mmol/L Potassium 3.1 L (3.5-5.1) mmol/L Chloride 109 H (98-107) mmol/L Carbon Dioxide 24 (21-32) mmol/L Anion Gap 6.0 (3-11) BUN 6 L D (7-18) mg/dl Creatinine 0.73 (0.6-1.4) mg/dl Est Cr Clr Drug Dosing 116.0 ml/min Est GFR ( Amer) 117.7 Est GFR (Non-Af Amer) 101.5 BUN/Creatinine Ratio 7.5 L (10-20) Glucose 103 H (70-99) mg/dl Calcium 8.7 (8.5-10.1) mg/dl Homocysteine Beta-2-GPI IgG Ab Beta-2-GPI IgM Ab Anti-Cardiolipin IgG Ab Anti-Cardiolipin IgM Ab Prothrombin Gene Mutate Prothromb Gene Comment
[2020-05-16] MEDS: WARFARIN SOD 7.5 MG TAB PO SCH (15:22)
--- NOTE | 2020-05-16 15:24 | Urology Progress Note ---
Date of Service May 16, 2020 Assessment & Plan (1) Nephrolithiasis: Stent in place. Tolerating well. OK to start blood thinners including Lovenox, with a transition to coumadin at some point. Moving forward, around the time of definitive stone surgery, will likely need to bridge with Lovenox once again. (2) Urinary tract obstruction by kidney stone: Subjective No acute events. Tolerating stent well. Still has large stone in urinary tract. No fevers. No chills. Voiding normally. Medicine staff inquiring about starting blood thinners. Review of Systems Review of Systems: All systems reviewed & are unremarkable except as noted in HPI & below Physical Exam Constitutional: WD/WN, vitals as above Neck: trachea midline, no thyromegaly Cardiovascular: RRR, no murmur, no edema Chest (Breasts): normal inspection/palpation of breasts Skin: no rashes, warm and dry Results & Data Vital Signs (Past 12 Hours) Vital Signs Temp Pulse Resp BP Pulse Ox 05/16/20 06:57 36.8 C 58 L 16 122/61 97 PG Care Time/CCT Total # of Minutes Spent Total Time Spent with Patient: Total time spent is greater than 50% in coordination of care (as documented) at patient's floor/unit and/or counseling patient: 30 Coding Level of Care Code 35343 Subseq Hosp Care Lvl 3 Diagnoses Nephrolithiasis N20.0 Urinary tract obstruction by kidney stone N20.0; N13.8
--- NOTE | 2020-05-19 14:17 | Discharge Summary ---
Date of Service date of admission - May 14, 2020 date of discharge - May 16, 2020 Admission HPI Per Admitting Provider 60yo male with h/o Crohn's disease with recent small bowel [place] on 04/29/[address] [facility] (about 1 foot of small intestine) and discharged on 05/04/20 to home presents as a transfer from [facility] due to a 12mm right- sided obstructing kidney stone. Pain started in right lower back last night about 10pm. He had associated emesis. Pain was constant through the night last evening. This am finally went to [facility] for evaluation due to persistent pain. CT abd/pelvis showed the right-sided stone. No dysuria or hematuria. Has had lithotripsy in the past but no stents (has seen Dr Beasley with [facility]). Since coming home from [place] he has had fairly constant pain to the right side of his midline abdominal incision. He saw his surgeon, Dr Cornelius Gómez, last Monday and was given a good report from an operative standpoint. He mentions he had gone to the ER in [place] on May 05 due to this pain and had a CT abd/pelvis at that time as well. He was told that the CT was without any acute pathology. Of note - the pain in the right flank is separate from the anterior abdominal pain. Records from [facility] reviewed: CT abd/pelvis earlier today - 1. obstructing 12mm right kidney stone with hydronephrosis 2. 8mm stone in left renal pelvis 3. extensive thrombus in the superior mesenteric vein and branch venous structures to the right lower quadrant 4. postsurgical changes right lower quadrant. Residual free air likely result of recent surgery. WBC 15.8 hemoglobin 10.9 MCV 80 Platelets 492 Diff -- Neutrophils 87% BUN 12 Cr 1 Na 134 K 3 Mag 1.8 lactate 0.9 ESR 40 LFTs wnl ua - 3+ blood; 25-50 RBCs on microscopy; no bacteria; 1+ protein Principal Diagnosis 1. obstructing right sided kidney stone s/p stent placement 2. superior mesenteric vein thrombosis Discharge Exam Constitutional well developed and well nourished; no acute distress ENMT external ear and nose normal, oropharynx normal Respiratory normal respiratory effort, lungs clear to auscultation Cardiovascular Rate/Rhythm: regular rate and regular rhythm Heart Sounds: normal S1 and normal S2; no murmur Vessels: posterior tibial pulses present and dorsalis pedis pulses present; no JVD Extremities: no edema Gastrointestinal (Abdomen) Inspection/Auscultation: normal bowel sounds; abdomen not distended Percussion/Palpation: + abdomen tender (Focal - to right side of midline incision from recent resection) and abdomen soft; no hepatosplenomegaly no right flank tenderness Psychiatric A+Ox3, euthymic affect Discharge Data Allergies Allergy/AdvReac Type Severity Reaction Status Date / Time No Known Allergies Allergy Verified 10/07/19 14:20 Consultations 05/14/20 15:48 Consult Urology Routine - Delmar Rosado MD 05/14/20 16:46 Consult General Surgery Routine - Teddy Galloway MD Procedures Performed Operation Date: 05/14/20 07:15 Actual Procedures p Cystoscopy Retrograde and right stent placement (Right) - Delmar Rosado MD Ordered Studies 05/14/20 18:17 FL retrograde includes kub Routine Hospital Course (1) Urinary tract obstruction by kidney stone: 12mm right-sided proximal ureteral stone with hydronephrosis. Upon transfer from [facility] the patient was seen by Dr Delmar Rosado, [facility]. In light of newly-discovered superior mesenteric vein thrombosis and need for anticoagulation the care team felt it was best to address the kidney stone as quickly as possible so that anticoagulation could be started expeditiously. Thus, Dr Rosado performed cystoscopy with right ureteral stent placement early in the evening on hospital day #1. Post-cystoscopy the patient was continued on IV fluids, IV pain meds, and flomax. Heparin drip was initiated shortly after the completion of the cystoscopy with stent placement. The patient did not experience any excessive hematuria despite the heparin. The patient will need to follow-up with [facility] soon after discharge to coordinate definitive stone management and ultimate retrieval of the stent in the setting of anticoagulation (lovenox SC). Discharge Creatinine was 0.7. He was discharged on 1-week course of cipro. He had no symptoms/signs of UTI while here. (2) Superior mesenteric vein thrombosis: This is the likely cause of his anterior abdominal pain that is to the right of his midline incision. The SMV thrombus was found on CT abd/pelvis on the day of admission. Risk factors - inflammation from Crohn's disease, recent surgery, etc. Can't rule out hereditary factors as his father and 2 siblings have had VTE. Patient was seen in consult by Dr Teddy Galloway, [facility] General Surgery. He agreed with initiation of anticoagulation. There were no signs of bowel ischemia on the CT done at [facility] and no signs of such clinically during his stay. He tolerated a diet without difficulty. After 2 days of heparin drip he was transitioned to SC lovenox 80mg BID. He will continue the lovenox at discharge; oral anticoagulation will NOT be started until his kidney stone and stent management have been completed. Before discharge a genetic hypercoagulability work-up was dispatched. Recommendations - 1. 6 months minimum of anticoagulation 2. once ready to start oral anticoagulation advise COUMADIN 3. coordination of lovenox with urology team as he will need stone management in the week following discharge 4. cipro/flagyl x 7 days Of note - the patient's primary colorectal surgeon at [facility] (Dr Cornelius Gómez) was made aware of the SMV thrombosis. (3) Crohns disease: Long-standing diagnosis. On biological agent and mesalamine. Recent small bowel resection at [facility] on 04/29/[address] Cornelius Gómez. Midline incision from that surgery was well-healed and without any signs of infection. Patient has f/u with Dr Gómez within the week of discharge. (4) Wells esophagus: Cont PPI daily. (5) GERD (gastroesophageal reflux disease): PPI daily. (6) Hypertension: Controlled. Hold SANDRA in the setting of obstructing stone. (7) Benign prostate hyperplasia: Cont flomax. (8) Hypokalemia: Replace with KCL 20meq daily x 7 days post-discharge. Suspect 2nd to chronic diarrhea from Crohn's. Mag level was normal. (9) Hyperlipidemia: Cont statin. Total Time Total Time Spent Total Time Spent (In Minutes): 45 Total Time Includes: Examination of the Patient, Discharge Planning, Medication Reconciliation and Communication With Other Providers Discharge Plan Discharge Items Patient Disposition: Home - Self-Care Reason For Visit: OBSTRUCTIVE KIDNEY STONE Discharge Diagnosis: 1. 12mm right-sided kidney stone with right-sided ureteral stent placement by Dr Delmar Rosado 2. superior mesenteric vein thrombosis (blood clot) - treatment with lovenox shots * risk factors for this - possibly genetic factors; recent surgery; Crohn's disease 3. Crohn's disease with recent small bowel resection at [place] 4. low potassium 5. ?UTI Activity: As commented below Activity Comment: follow ANY instructions given by Dr Gómez at [facility] Driving/Machine Use: follow any previous instructions given by Dr Gómez at [facility] Non-emergency contact: Primary Care Provider, Surgeon and Urologist Call non-emergency contact if: you have any medication questions, your symptoms worsen, your pain is not controlled, your pain is worsening, your pain is unusual for you, your pain is concerning for you and you have a fever Follow-up/Referrals: Cornelius Gómez MD [Other] - 05/22/20 ([facility] ) Delmar Rosado MD [Physician] - (call on 05/18/20, to coordinate future lithotripsy of kidney stone Again, note left for corporate legal secretary to call office on monday and then follow up with patient ) Simone Ying [Primary Care Provider] - (see Dr Ying within 1 week Note left for corporate legal secretary to make appt on monday and call patient) Diet: Low Fiber Addtl Attending Provider Instructions: You were treated for the problems listed above in "discharge diagnoses." At [facility] the CT of your abdomen & pelvis not only showed the 12mm right-sided kidney stone but also a blood clot in the superior mesenteric vein of your abdomen. This is the likely cause of your right-sided abdominal pain adjacent to your incision. Crohn's disease increases the chances of blood clots. Surgery is a risk factor for blood clot formation. Genetic factors also increase one's chances of blood clots. You have been tested for genetic factors -- these labs are pending at time of discharge. You are doing well following your stent placement. You will need lithotripsy in the next week for the stone. General surgery saw you for the mesenteric vein clot and they are advising blood thinners. Recommendations - 1. lovenox injections -- 80mg twice daily; space 12 hours apart (7am & 7pm, 8am & 8pm -- your preference) * take your first shot tonight * alternate the location of the injections day to day 2. ultimately coumadin will be used in robin of lovenox; coumadin likely to start after your lithotripsy is complete; the start date of coumadin will need to be coordinated with Urology 3. take cipro antibiotic 500mg twice daily for 7 days AND metronidazole 500mg three times daily for 7 days; start these TONIGHT. DO NOT DRINK ALCOHOL while on these antibiotics. 4. pain control - * oxycodone 5mg every 4 hours as needed; these can impair your thinking thus do NOT drive while taking pain killers; they can also cause constipation * pyridium 100mg every 8 hours as needed for urinary/bladder pain; this medication will make your urine orange * [id number] tylenol is fine * AVOID aspirin, motrin, ibuprofen, naprosyn 5. potassium supplement daily for 7 days; start tomorrow 6. stop your aspirin 7. on Monday we will try to locate a coumadin clinic in your area for you 8. follow-up -- see separate section 9. you will see blood intermittently when you urinate; this is to be expected; if you feel there is an excessive amount or it appears to be worsening please contact the urology office Return to [facility] if - * you have fever over 100.4 degrees * you have worsening back, flank or abdominal pain * you have severe diarrhea (above your normal amount) * you have severe blood in the urine * any other concerns Pending Studies at Discharge: No Stand-Alone Forms: My [facility] [employer], Smoking Cessation Medications and DC Order Prescriptions: New enoxaparin [Lovenox] 80 mg/0.8 mL Syringe 80 mg subcut Q12H 14 Days Qty: 22.4 RF: 0 potassium chloride [Klor-Con M20] 20 mEq Tablet,Er Particles/Crystals 20 meq PO DAILY 7 Days Qty: 7 RF: 0 ciprofloxacin HCl 500 mg tablet 500 mg PO BID 7 Days Qty: 14 RF: 0 metronidazole [Flagyl] 500 mg tablet 500 mg PO Q8H 7 Days Qty: 21 RF: 0 phenazopyridine [Pyridium] 100 mg tablet 100 mg PO Q8H PRN (Reason: urinary/bladder pain) Qty: 20 RF: 0 Continued atorvastatin [Lipitor] 20 mg tablet 20 mg PO HS RF: 0 sertraline 50 mg tablet 50 mg PO HS RF: 0 zolpidem 10 mg tablet 10 mg PO HS PRN (Reason: Sleep) RF: 0 lisinopril 5 mg tablet 5 mg PO QAM RF: 0 lorazepam 0.5 mg tablet 0.5 mg PO DAILY RF: 0 omeprazole 40 mg capsule,delayed release(DR/EC) 40 mg PO QAM RF: 0 multivitamin [Daily Multi-Vitamin] tablet 1 tab PO DAILY RF: 0 mesalamine 0.375 gram capsule,extended release 24hr 0.75 g PO BID RF: 0 cyanocobalamin (vitamin B-12) 1,000 mcg tablet extended release 1,000 mcg PO QAM RF: 0 tamsulosin [Flomax] 0.4 mg Capsule 0.4 mg PO DAILY RF: 0 Humira(CF) Pen 40 mg/0.4 mL pen injector kit SUBCUT RF: 0 oxycodone 5 mg Tablet 5 mg PO Q4 PRN (Reason: Pain) Qty: 20 RF: 0 Discontinued oxycodone-acetaminophen [Percocet] 5-325 mg tablet 1 tab PO Q4H PRN (Reason: Pain) RF: 0 aspirin 81 mg tablet,delayed release (DR/EC) 81 mg PO QAM RF: 0 metronidazole 250 mg tablet RF: 0 Discharge Orders: Discharge Order (Routine); Ordered 05/16/20 Ordered By: Michelet Hoover/Other Patient Handouts: Understanding Deep Vein Thrombosis, What to Know When TakingWarfarin, Enoxaparin injection Admission Data Admit Date/Time: 05/14/20 14:51 Attending Provider: Michelet Landry Admit Provider: Dianne Ferro Primary Care Provider: Simone Ying Other Providers: Delmar Rosado ; Rojelio Galloway Other Interventions: Discharge Summary Assessment (RN) Last Done: 05/16/20 16:03 DC Date/Time DO NOT enter until pt leaves facility: 05/16/20 16:48 Coding Level of Care Code D/C Day Management >30 mins Diagnoses Urinary tract obstruction by kidney stone N20.0; N13.8 Superior mesenteric vein thrombosis K55.069 Crohns disease K50.019 Gastrointestinal tract location: small intestine Digestive disease complication type: unspecified complication Wells esophagus K22.70 Wells's esophagus type: without dysplasia GERD (gastroesophageal reflux disease) K21.9 Esophagitis presence: esophagitis presence not specified Hypertension I10 Hypertension type: essential hypertension Benign prostate hyperplasia N40.0 Lower urinary tract symptom presence: symptoms absent Hypokalemia E87.6 Hyperlipidemia E78.2 Hyperlipidemia type: mixed hyperlipidemia
[2020-05-20 19:38] LABS: Anti Cardiolipin Ab IgG <14 GPL; Anti Cardiolipin Ab IgM 14 MPL; B2 Glycoprotein IgG <9 SGU (<=20); B2 Glycoprotein IgM <9 SMU (<=20)
== END 2020-05-16 16:48 | disposition home or self-care (01) ==
LOC: 3E 14:51 → INTOOBSV 14:51 → SUATTDRO 14:51

== ENCOUNTER 2020-06-28 11:57 | Observation (INO) ==
--- NOTE | 2020-06-28 14:08 | History & Physical Report ---
Date of Service June 28, 2020 Assessment & Plan (1) History of kidney stones: (1) Urinary tract obstruction by kidney stone: Left ureteral stone with hydronephrosis. Upon transfer from [facility] pateint was accepted by [facility]. Due to superior mesenteric vein thrombosis that was diagnosed in previous hospital stay, patient will be placed on HEPARIN IV. Informed Dr. Montoya, will place stent likely in AM. (2) Superior mesenteric vein thrombosis: Patien will be on IV heparin until procedure is completed (3) Crohns disease: Long-standing diagnosis. On biological agent and mesalamine. Recent small bowel resection at [facility] on 04/29/[address] Cornelius Gómez. Midline incision from that surgery was well-healed and without any signs of infection. Patient has f/u with Dr Gómez within the week of this hospital discharge. (4) Wells esophagus: Cont PPI daily. (5) GERD (gastroesophageal reflux disease): PPI daily. (6) Hypertension: Controlled. Hold SANDRA in the setting of obstructing stone. (7) Benign prostate hyperplasia: Cont flomax. (8) Hypokalemia: will replace as he was extremely hypokalemic. (9) Hyperlipidemia: Cont statin. Admission and Anticipated Discharge Date Admission Date: June 28, 2020 History of Present Illness Chief Complaint: Left kidney stone Primary Care Provider: Simone Yign This is a pleasant 60 yo male with PMH described below. He was recently admitted with a kidney stone and discharged. However, this past few days, he began having left sided flank pain and thought it was related to his abdomen. He was brought in to [facility], and HIS CT scan showed a an ocbstructing stone at his uterovesical junction. Patient is transferred to [facility] [address] for posible stenet placement. Patient reports his pain is now better controlled. Allergies Allergy/AdvReac Type Severity Reaction Status Date / Time No Known Allergies Allergy Verified 06/16/20 15:02 Home Medications Home Medications Medication Instructions Recorded Confirmed Type cyanocobalamin (vitamin B-12) 1,000 mcg PO QAM tab 06/07/19 06/16/20 History 1,000 mcg tablet,extended release lisinopril 5 mg tablet 5 mg PO QAM tab 06/07/19 06/16/20 History lorazepam 0.5 mg tablet 0.5 mg PO DAILY PRN tab 06/07/19 06/16/20 History mesalamine 0.375 gram 0.375 g PO BID cap 06/07/19 06/16/20 History capsule,extended release 24 hr multivitamin 1 tab PO QAM 06/07/19 06/16/20 History omeprazole 40 mg capsule,delayed 40 mg PO QAM cap 06/07/19 06/16/20 History release sertraline 50 mg tablet 50 mg PO HS tab 06/07/19 06/16/20 History zolpidem 10 mg tablet 10 mg PO HS PRN tab 06/07/19 06/16/20 History atorvastatin 20 mg tablet 20 mg PO HS 06/19/19 06/16/20 History Humira(CF) Pen See Rx Instructions .ROUTE .COMPLEX 05/14/20 06/16/20 History diclofenac sodium 4 g TOPICAL QID PRN 05/24/20 06/16/20 History tamsulosin 0.4 mg capsule 0.4 mg PO DAILY #30 cap 05/25/20 06/16/20 Rx enoxaparin [Lovenox] 80 mg SUBCUT Q12H 06/04/20 06/16/20 History Past Med/Surg History Medical History Adenocarcinoma, lung Anxiety Wells esophagus Benign prostate hyperplasia 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 Workup was + for a prothrombotic mutation. Crohns disease dx age 23 GERD (gastroesophageal reflux disease) History of squamous cell carcinoma skin cancer Hyperlipidemia Hypertension Nephrolithiasis Osteoarthritis Surgical History History of appendectomy History of cardiac cath Done for + stress test. Per pt, no findings, no stents. MELISSA noe 2017 History of carpal tunnel surgery of left wrist ULNAR NERVE TRANSPOSITION History of squamous cell carcinoma excision Hx of arthroscopy of right knee Hx of cholecystectomy 1997 Hx of colonoscopy 2019 Hx of lithotripsy several S/P bronchoscopy with biopsy (08/02/19) Endobronchial Ultrasound Bronchoscopy Navigational with Biopsies Dr. Diaz 08/02/19 [facility] S/P lobectomy of lung LLL VATS 08/14/19 -- MAC #3, ETT 8.5, grade view II. Atraumatic x 1. S/P small bowel resection First in 1997 for Crohns Second 04/29/20, ~12 inches, Dr Cornelius Gómez, [facility] Status post lobectomy of lung (08/14/19) Navigational Bronchoscopy with ICG Markings Robotic Left Video Assisted Thoracoscopy with Left Lower Lobe Wedge Resection, Left Lower Lobectomy with Mediastinal Lyphadenectomy Dr. 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 Other Information That Helps Us Care for You: No Feels Safe at Home: Yes Safety Concerns: Feels Safe At This Time Childhood Exposure to Second-Hand Smoke: Yes Review of Systems Constitutional: no fever Eyes: no worsening vision Ear, Nose, Mouth, Throat: no nasal congestion and no sore throat no loss of taste or smell Respiratory: + cough; no dyspnea, no dyspnea on exertion and no wheezing Cardiovascular: no chest pain and no edema Gastrointestinal: + abdominal pain and + diarrhea/loose stools (chronic ) Genitourinary: no dysuria and no hematuria Musculoskeletal: + back pain Integumentary: no rash Neurologic: no loss of sensation Psychiatric: no depression Endocrine: no diabetes Hematologic / Lymphatic: no easy bleeding and no easy bruising no history of blood clots Physical Exam Constitutional: well developed and well nourished; no acute distress and no altered mental status ENMT: external ear and nose normal, oropharynx normal Respiratory: normal respiratory effort, lungs clear to auscultation Cardiovascular: Rate/Rhythm: regular rate and regular rhythm Heart Sounds: normal S1 and normal S2; no murmur Vessels: posterior tibial pulses present and dorsalis pedis pulses present; no JVD Extremities: no edema Gastrointestinal (Abdomen): Inspection/Auscultation: normal bowel sounds; abdomen not distended Percussion/Palpation: abdomen soft; no guarding (no CVA tenderness B/L) and no hepatosplenomegaly Musculoskeletal: no flank pain right w/ palpation Skin: midline incision on abdomen c/d/i Psychiatric: A+Ox3, euthymic affect PG Care Time/CCT Total # of Minutes Spent Total Time Spent with Patient: Total time spent is greater than 50% in coordination of care (as documented) at patient's floor/unit and/or counseling patient: Coding Level of Care Code 05360 Initial Inpt Care Lvl 3 Diagnoses History of kidney stones Z87.442 Time Spent (min) 55
[2020-06-28] MEDS ORDERED: ZOLPIDEM TARTRATE 10 MG TAB PO PRN (14:20)
[2020-06-28] MEDS ORDERED: MoRPHine SULFATE 4 MG/ML 1 ML CARP\\VIAL IV PRN (14:36)
[2020-06-28] MEDS ORDERED: PATIENT'S HEIGHT AND/OR WEIGHT NEEDED ONE (15:00)
[2020-06-28] MEDS: ONDANSETRON INJ 2 MG/ML 2 ML VIAL IV PRN ×2 (15:38→21:00)
[2020-06-28] MEDS: HYDROmorphone INJ 1 MG/ML SYRINGE IV PRN ×2 (15:38→19:58)
[2020-06-28] MEDS: LACTATED RINGER'S 1,000 ML IV SCH (15:38)
[2020-06-28 15:47] LABS: Basophils # (auto) 0.02 K/uL (0-0.2); Basophils % (auto) 0.2 %; Eosinophils # (auto) 0.02 K/uL (0-0.5); Eosinophils % (auto) 0.2 %; Hemoglobin 13.2 g/dL (14.0-18.0); Immature Granulocytes # (auto) 0.01 K/uL (0.00-0.02); Immature Granulocytes % (auto) 0.1 %; Lymphocytes % (auto) 47.5 %; Mean Corpuscular Hemoglobin 25.8 pg (25-34); Mean Corpuscular Hgb Conc 33.8 g/dL (32-36); Mean Corpuscular Volume 76.2 fL (80-100); Monocytes # (auto) 1.05 K/uL (0.11-0.59); Monocytes % (auto) 10.6 %; Neutrophils % (auto) 41.4 %; Platelet Count 472 K/uL (130-400); RDW Coefficient of Variation 15.5 % (11.5-14.5); RDW Standard Deviation 42.9 fL (36.4-46.3); Red Blood Count 5.12 M/uL (4.7-6.1)
[2020-06-28 15:59] LABS: INR 1.1 (0.9-1.1); Partial Thromboplastin Ratio 1.1; Partial Thromboplastin Time 30.9 Seconds (21.0-31.0); Prothrombin Time 11.6 Seconds (9.0-12.0)
[2020-06-28 16:06] LABS: Alanine Aminotransferase 26 U/L (12-78); Albumin Level 4.1 gm/dl (3.4-5.0); Aspartate Aminotransferase 13 U/L (15-37); BUN Creatinine Ratio 32.4 (10-20); Blood Urea Nitrogen 32 mg/dl (7-18); Calcium 9.5 mg/dl (8.5-10.1); Carbon Dioxide 24 mmol/L (21-32); Chloride 98 mmol/L (98-107); Est GFR (African American) 98.6; Est GFR (Non-African American) 85.1; Glucose 85 mg/dl (70-99); Magnesium 2.1 mg/dl (1.8-2.4); Potassium 2.7 mmol/L (3.5-5.1); Sodium 134 mmol/L (136-145)
[2020-06-28 16:08] LABS: Albumin Globulin Ratio 0.9 (0.9-2); Alkaline Phosphatase 107 U/L (45-117); Bilirubin,Total 0.7 mg/dl (0.2-1); Globulin 4.5 gm/dl (2.5-4.0); Phosphorus 3.3 mg/dl (2.5-4.9); Total Protein 8.6 gm/dl (6.4-8.2)
[2020-06-28] MEDS: POTASSIUM CHLORIDE / WTR 10 MEQ/100 ML PLCT IV SCH ×4 (17:55→21:32)
[2020-06-28] MEDS: OXYBUTYNIN CHLORIDE 5 MG TAB PO PRN (18:20)
[2020-06-28] MEDS: Heparin IV Standard *NO* Bolus IV SCH (19:15)
[2020-06-28 20:30] LABS: Appearance Urine Clear (Clear); Bacteria Urine Automated Negative (Negative); Bilirubin Urine Negative (Negative); Blood Urine 2+ (Negative); Color Urine Yellow; Glucose Urine UA Negative (Negative); Ketones Urine Trace (Negative); Leukocyte Esterase Urine Trace (Negative); Nitrite Urine Negative (Negative); Protein Urine 1+ (Negative); RBC Urine Automated >30 /hpf (0-4); Specific Gravity Urine 1.039 (1.000-1.030); Urobilinogen Urine Negative (Negative)
[2020-06-28] MEDS: ATORVASTATIN 20 MG TAB PO SCH (20:57)
[2020-06-28] MEDS: SERTRALINE HCL 50 MG TABLET PO SCH (20:57)
[2020-06-28] MEDS: POTASSIUM CHLORIDE 20 MEQ TABCR PO SCH (20:58)
[2020-06-28] MEDS: HEPARIN SODIUM/DEXTROSE 25,000 UNITS/500 ML BAG IV SCH (21:02)
[2020-06-28] MEDS ORDERED: PROCHLORPERAZINE 5 MG in SYRINGE 4 ML IV ONE (23:15)
[2020-06-28] MEDS: MoRPHine SULFATE 4 MG/ML 1 ML CARP\\VIAL IV PRN (23:47)
[2020-06-29] MEDS: PHENAZOPYRIDINE HCL 100 MG TAB PO PRN ×2 (00:42→20:11)
[2020-06-29] MEDS: LACTATED RINGER'S 1,000 ML IV SCH (02:53)
[2020-06-29] MEDS: MoRPHine SULFATE 4 MG/ML 1 ML CARP\\VIAL IV PRN ×4 (02:59→23:23)
[2020-06-29 03:36] LABS: Partial Thromboplastin Ratio 1.7
[2020-06-29] MEDS: ONDANSETRON INJ 2 MG/ML 2 ML VIAL IV PRN (03:44)
[2020-06-29 03:45] LABS: Partial Thromboplastin Time 47.9 Seconds (21.0-31.0)
[2020-06-29] MEDS: HEPARIN SODIUM/DEXTROSE 25,000 UNITS/500 ML BAG IV SCH ×2 (03:54→19:18)
--- NOTE | 2020-06-29 08:12 | Urology Consultation ---
Date of Consultation June 29, 2020 Assessment & Plan (1) Left renal stone: Patient acutely admitted for an obstructing 10 mm UPJ stone which was found at an outlying facility. Patient has a long history of stones. Most recently had a stone which became obstructed on the right side and required hospitalization and surgical intervention. Discussed options for conservative measure and maximum expulsion medical therapy and symptom controlled. Discussed ESWL. Discussed Ureteroscopy with extraction and/or laser lithotripsy. Risks and benefits were discussed. Stone free rates were also discussed as well as possibility of multiple procedures. Ureteral stents were discussed as well as post-operative issues and pain management. All questions were answered. Patient is tolerating hydration however due to the size stone and previous issues with obstruction discussed different option such as cystoscopy with left stent placement. Patient will be consented and is interested in proceeding and will be added on as a case later in the day. Risks and benefits discussed at length for procedure. These include bleeding, infection, injury to surrounding tissues or organs, and risks associated with anesthesia. Patient states understanding and agrees to proceed. Will sign consent and schedule. History of Present Illness Attending Physician: Luther Burgess, History of Present Illness Hospital consultation for patient with stone, discomfort, obstruction, and ill feelings. Patient developed sudden onset of pain into flank going down and radiating into groin and back in waves comes and goes. Can be severe at times. Patient approximately 2 months ago passed a stone on the right which also became obstructed and needed intervention. He is well-known to the urology team. He had presented to an outlying facility ER with severe pain and thought he was having a flare of his bowel issues. Found to have a 10 mm left-sided obstructing UPJ stone. Discussed and reviewed patient's family history for any history of stone disease. Also, discussed patient's medical surgery history especially related to any history of urinary issues or stone disease. Patient was admitted and is undergoing observation. Allergies Allergy/AdvReac Type Severity Reaction Status Date / Time No Known Allergies Allergy Verified 06/16/20 15:02 Home Medications Home Medications Medication Instructions Recorded Confirmed Type cyanocobalamin (vitamin B-12) 1,000 mcg PO QAM tab 06/07/19 06/16/20 History 1,000 mcg tablet,extended release lisinopril 5 mg tablet 5 mg PO QAM tab 06/07/19 06/16/20 History lorazepam 0.5 mg tablet 0.5 mg PO DAILY PRN tab 06/07/19 06/16/20 History mesalamine 0.375 gram 0.375 g PO BID cap 06/07/19 06/16/20 History capsule,extended release 24 hr multivitamin 1 tab PO QAM 06/07/19 06/16/20 History omeprazole 40 mg capsule,delayed 40 mg PO QAM cap 06/07/19 06/16/20 History release sertraline 50 mg tablet 50 mg PO HS tab 06/07/19 06/16/20 History zolpidem 10 mg tablet 10 mg PO HS PRN tab 06/07/19 06/16/20 History atorvastatin 20 mg tablet 20 mg PO HS 06/19/19 06/16/20 History Humira(CF) Pen See Rx Instructions .ROUTE .COMPLEX 05/14/20 06/16/20 History diclofenac sodium 4 g TOPICAL QID PRN 05/24/20 06/16/20 History tamsulosin 0.4 mg capsule 0.4 mg PO DAILY #30 cap 05/25/20 06/16/20 Rx enoxaparin [Lovenox] 80 mg SUBCUT Q12H 06/04/20 06/16/20 History Patient History Medical History Adenocarcinoma, lung Anxiety Wells esophagus Benign prostate hyperplasia 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 Workup was + for a prothrombotic mutation. Crohns disease dx age 23 GERD (gastroesophageal reflux disease) History of squamous cell carcinoma skin cancer Hyperlipidemia Hypertension Nephrolithiasis Osteoarthritis Surgical History History of appendectomy History of cardiac cath Done for + stress test. Per pt, no findings, no stents. MELISSA noe 2017 History of carpal tunnel surgery of left wrist ULNAR NERVE TRANSPOSITION History of squamous cell carcinoma excision Hx of arthroscopy of right knee Hx of cholecystectomy 1997 Hx of colonoscopy 2019 Hx of lithotripsy several S/P bronchoscopy with biopsy (08/02/19) Endobronchial Ultrasound Bronchoscopy Navigational with Biopsies Dr. Diaz 08/02/19 [facility] S/P lobectomy of lung LLL VATS 08/14/19 -- MAC #3, ETT 8.5, grade view II. Atraumatic x 1. S/P small bowel resection First in 1997 for Crohns Second 04/29/20, ~12 inches, Dr Cornelius Gómez, [facility] Status post lobectomy of lung (08/14/19) Navigational Bronchoscopy with ICG Markings Robotic Left Video Assisted Thoracoscopy with Left Lower Lobe Wedge Resection, Left Lower Lobectomy with Mediastinal Lyphadenectomy Dr. 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 Patient is well nourished and well kept. HEENT: Normocephalic Atraumatic. Inspection normal. Cranial Nerves 2-12 Grossly intact. Nares are clear. Neck is supple. Normal inspection of face. Normal inspection of neck. Neurologic: No deficits on inspection. Baseline for motor function and sensory. Psychologic: Normal affect. Respiratory: Nonlabored. No use of accessory muscles. No tachypnea or dyspnea. Cardiovascular: No tachycardia Skin: [employer] and Dry. No rashes or visible lesions. Extremities: Moving without issues. No motor deficits on inspection Lymphatics: No edema Abdomen: Soft Non-distended. No acites. No rebound or guarding. Results & Data ([facility]) Vital Signs (Past 12 Hours) Vital Signs Temp Pulse Pulse Resp BP Pulse Ox 06/29/20 07:22 36.8 C 63 16 131/76 95 06/29/20 04:10 36.9 C 61 14 142/82 H 95 06/29/20 00:09 36.9 C 66 14 130/89 98 PG Care Time/CCT Total # of Minutes Spent Total Time Spent with Patient: Total time spent is greater than 50% in coordination of care (as documented) at patient's floor/unit and/or counseling patient: Coding Level of Care Code 72048 Inpt Consult Level 5 Diagnoses Left renal stone N20.0
[2020-06-29] MEDS: PANTOprazole 40 MG TAB PO SCH (08:56)
[2020-06-29] MEDS: POTASSIUM CHLORIDE 20 MEQ TABCR PO SCH (08:57)
[2020-06-29] MEDS: lisinopriL 5 MG TAB PO SCH (08:57)
[2020-06-29] MEDS: TAMSULOSIN HCL 0.4 MG CAP PO SCH (08:57)
[2020-06-29 09:24] LABS: Albumin Globulin Ratio 0.9 (0.9-2); Albumin Level 3.5 gm/dl (3.4-5.0); BUN Creatinine Ratio 28.2 (10-20); Bilirubin,Total 0.6 mg/dl (0.2-1); Calcium 9.4 mg/dl (8.5-10.1); Creatinine Clr Calc Pharmacy 94.8 ml/min; Est GFR (Non-African American) 94.9; Globulin 3.9 gm/dl (2.5-4.0); Potassium 3.3 mmol/L (3.5-5.1); Total Protein 7.4 gm/dl (6.4-8.2)
[2020-06-29] MEDS: OXYBUTYNIN CHLORIDE 5 MG TAB PO PRN (11:04)
[2020-06-29] MEDS: NSS + 20MEQ KCL 20 MEQ/1,000 ML BAG IV SCH ×2 (11:11→23:18)
--- NOTE | 2020-06-29 11:53 | Hospitalist Progress Note ---
Date of Service June 29, 2020 Assessment & Plan (1) Left renal stone: (2) History of kidney stones: Left ureteral stone with hydronephrosis. Due to superior mesenteric vein thrombosis that was diagnosed in previous hospital stay, patient was placed on HEPARIN IV. Consulted urology - for stent this afternoon. Per Dr. Montoya, turn off heparin when they come to take him to the OR. Communication order placed Continue Flomax which patient takes for bph (3) Pulmonary nodule seen on imaging study: (4) Wells esophagus: Continue ppi when taking po (5) Blood clot in vein: Superior mesenteric vein thrombosis Heparin as above, resume after surgery as soon as urology ok with it (6) Crohns disease: On Humira, continue mesalamine when taking po (7) Hypertension: Continue lisinopril when taking po (8) Blood clotting disorder: Heterozygous for Prothrombin/Factor II gene mutation Continue heparin gtt after procedure. Can resume Lovenox tomorrow if no issues with bleeding (9) Hypokalemia: Potassium 3.3 today - givem 20 mEq po this morning and will change fluids to NSS 20k@ 100 mls/hr (10) DVT prophylaxis: heparin gtt Admission and Anticipated Discharge Date Admission Date: June 28, 2020 Subjective Mr. Man continues to have colicky left flank pain. He is a little nauseas but no vomiting. ROS Constitutional: no chills, aches, sweats or fever Respiratory: no sob,cough, sputum, or wheezing Cardiac: no chest pain, palpitations, edema, orthopnea or lightheadedness GI: no abdominal pain, nausea, vomiting, diarrhea or constipation : no dysuria or hesitancy Extremities: no joint pain or weakness Skin: no rash All other systems reviewed and negative Results & Data Results & Data ([facility]) Vital Signs (Past 12 Hours) Vital Signs Temp Pulse Pulse Resp BP Pulse Ox 06/29/20 08:54 131/87 06/29/20 07:22 36.8 C 63 16 131/76 95 06/29/20 04:10 36.9 C 61 14 142/82 H 95 06/29/20 00:09 36.9 C 66 14 130/89 98 PG Care Time/CCT Total # of Minutes Spent Total Time Spent with Patient: Total time spent is greater than 50% in coordination of care (as documented) at patient's floor/unit and/or counseling patient: Coding Level of Care Code 01170 Subseq Hosp Care Lvl 3 Diagnoses Left renal stone N20.0 History of kidney stones Z87.442 Pulmonary nodule seen on imaging study R91.1 Wells esophagus K22.70 Wells's esophagus type: without dysplasia Blood clot in vein I82.90 Crohns disease K50.019 Gastrointestinal tract location: small intestine Digestive disease complication type: unspecified complication Hypertension I10 Hypertension type: essential hypertension Blood clotting disorder D68.9 Hypokalemia E87.6 DVT prophylaxis Z29.9 (1) Wells esophagus Wells's esophagus type: without dysplasia Qualified Code(s): K22.70 - Wells's esophagus without dysplasia (2) Crohns disease Gastrointestinal tract location: small intestine Digestive disease complication type: unspecified complication Qualified Code(s): K50.019 - Crohn's disease of small intestine with unspecified complications (3) Hypertension Hypertension type: essential hypertension Qualified Code(s): I10 - Essential (primary) hypertension
[2020-06-29] MEDS ORDERED: CIPROFLOXACIN / D5W 400 MG/200 ML BAG IV SCH (15:00)
--- NOTE | 2020-06-29 15:06 | Anesthesiology Consultation ---
Date of Service June 29, 2020 Assessment & Plan (1) Encounter for pre-operative examination: Chart Review Chart Review: Acceptable Risk for Surgery and Patient NOT seen in Pre Admission Testing Consults Requested none ASA ASA3 Proposed Anesthesia Anesthesia Type: MAC Risk / Benefits Reviewed With: PT / POA / Parent / Guardian, Accepts Plan and I nformed Consent Obtained History Surgery Operation Date: 06/29/20 14:30 Proposed Procedures p Cystoscopy, Left Stent Insertion - Barron Montoya, Height/Weight Height: 5 ft 11 in Weight: 72.5 kg Allergies Allergy/AdvReac Type Severity Reaction Status Date / Time No Known Allergies Allergy Verified 06/16/20 15:02 Medications Home Medications Medication Instructions Recorded Confirmed Last Taken cyanocobalamin (vitamin B-12) 1,000 mcg PO QAM tab 06/07/19 06/29/20 06/27/20 1,000 mcg tablet,extended release lisinopril 5 mg tablet 5 mg PO QAM tab 06/07/19 06/29/20 06/29/20 09:00 lorazepam 0.5 mg tablet 0.5 mg PO DAILY PRN tab 06/07/19 06/29/20 06/25/20 mesalamine 0.375 gram 0.375 g PO BID cap 06/07/19 06/29/20 1 Day Ago capsule,extended release 24 hr ~06/27/20 multivitamin 1 tab PO QAM 06/07/19 06/29/20 1 Day Ago ~06/27/20 omeprazole 40 mg capsule,delayed 40 mg PO QAM cap 06/07/19 06/29/20 1 Day Ago release ~06/27/20 sertraline 50 mg tablet 50 mg PO HS tab 06/07/19 06/29/20 06/28/20 21:00 zolpidem 10 mg tablet 10 mg PO HS PRN tab 06/07/19 06/29/20 05/13/20 21:00 atorvastatin 20 mg tablet 20 mg PO HS 06/19/19 06/29/20 06/28/20 21:00 Humira(CF) Pen See Rx Instructions .ROUTE .COMPLEX 05/14/20 06/29/20 06/23/20 diclofenac sodium 4 g TOPICAL QID PRN 05/24/20 06/29/20 1 Day Ago ~06/27/20 tamsulosin 0.4 mg capsule 0.4 mg PO DAILY #30 cap 05/25/20 06/29/20 06/29/20 09:00 enoxaparin [Lovenox] 80 mg SUBCUT Q12H 06/04/20 06/29/20 06/28/20 Active Medications Generic Name Dose Route Start Last Admin Trade Name Freq PRN Reason Stop Dose Admin Atorvastatin Calcium 20 mg 06/28/20 21:00 06/28/20 20:57 Atorvastatin 20 Mg Tab PO 07/28/20 20:59 20 mg HS GENO Administration Heparin Sodium/Dextrose 25,000 units in 500 mls @ 0 mls/hr 06/28/20 21:00 06/29/20 14:40 Heparin Sodium/Dextrose IV 07/28/20 20:59 0 units/hr .Q0M GENO 0 mls/hr Titration Protocol 0 UNITS/HR Potassium Chloride/Sodium Chloride 20 meq in 1,000 mls @ 100 mls/hr 06/29/20 10:15 06/29/20 14:39 Normal Saline W/20 Meq Kcl IV 07/29/20 10:14 0 mls/hr .Q10H GENO Infusion Lisinopril 5 mg 06/29/20 09:00 06/29/20 08:57 Lisinopril 5 Mg Tab PO 07/29/20 08:59 5 mg QAM GENO Administration Miscellaneous 1 ea 06/28/20 16:00 06/29/20 08:15 Mesalamine 0.375 Gm ~ Order Awaiting Action N/A 07/28/20 15:59 Not Given QS GENO Morphine Sulfate 3 mg 06/28/20 22:51 06/29/20 11:16 Morphine Sulfate 4 Mg/Ml 1 Ml Carp\Vial IV 07/12/20 14:35 3 mg Q3H PRN Administration Moderate Pain Ondansetron HCl 4 mg 06/28/20 14:46 06/29/20 03:44 Ondansetron Inj 2 Mg/Ml 2 Ml Vial IV 07/28/20 14:45 4 mg Q4H PRN Administration Nausea Oxybutynin Chloride 5 mg 06/28/20 14:20 06/29/20 11:04 Oxybutynin Chloride 5 Mg Tab PO 07/28/20 14:19 5 mg BID PRN Administration bladder spasms Pantoprazole Sodium 40 mg 06/29/20 09:00 06/29/20 08:56 Pantoprazole 40 Mg Tab PO 07/29/20 08:59 40 mg QAM GENO Administration Phenazopyridine HCl 100 mg 06/28/20 14:20 06/29/20 00:42 Phenazopyridine Hcl 100 Mg Tab PO 07/28/20 14:19 100 mg Q8H PRN Administration Urinary/bladder pain Sertraline HCl 50 mg 06/28/20 21:00 06/28/20 20:57 Sertraline Hcl 50 Mg Tablet PO 07/28/20 20:59 50 mg HS GENO Administration Tamsulosin HCl 0.4 mg 06/29/20 09:00 06/29/20 08:57 Tamsulosin Hcl 0.4 Mg Cap PO 07/29/20 08:59 0.4 mg DAILY GENO Administration NPO Date Last Intake of Fluids: 06/28/20 Time Last Intake of Fluids: 18:00 Date Last Intake of Solids: 06/28/20 Time Last Intake of Solids: 18:00 Past Medical History Medical History (Updated 06/29/20 @ 12:09 by JOSS Baltazar) Adenocarcinoma, lung Anxiety Wells esophagus Benign prostate hyperplasia 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 Workup was + for a prothrombotic mutation. Crohns disease dx age 23 GERD (gastroesophageal reflux disease) History of squamous cell carcinoma skin cancer Hyperlipidemia Hypertension Nephrolithiasis Osteoarthritis Exercise / Class Metabolic Activity II 4-5 Yardwork/Stairs/Walk up hill Negative for chest pain or shortness of breath. Past Family History Family History Father , age 62 from prostate ca Prostate cancer Hypertension Mother , age 83 Hypertension Past Surgical History Surgical History History of appendectomy History of cardiac cath Done for + stress test. Per pt, no findings, no stents. MELISSA noe 2017 History of carpal tunnel surgery of left wrist ULNAR NERVE TRANSPOSITION History of squamous cell carcinoma excision Hx of arthroscopy of right knee Hx of cholecystectomy 1997 Hx of colonoscopy 2019 Hx of lithotripsy several S/P bronchoscopy with biopsy (08/02/19) Endobronchial Ultrasound Bronchoscopy Navigational with Biopsies Dr. Diaz 08/02/19 [facility] S/P lobectomy of lung LLL VATS 08/14/19 -- MAC #3, ETT 8.5, grade view II. Atraumatic x 1. S/P small bowel resection First in 1997 for Crohns Second 04/29/20, ~12 inches, Dr Cornelius Gómez, [facility] Status post lobectomy of lung (08/14/19) Navigational Bronchoscopy with ICG Markings Robotic Left Video Assisted Thoracoscopy with Left Lower Lobe Wedge Resection, Left Lower Lobectomy with Mediastinal Lyphadenectomy Dr. Diaz 08/14/19 Past Anesthesia History No Hx of Anesthesia Complications History of PONV No Hx of PONV Social History Smoking Status: Never smoker Hx Alcohol Use: Yes Alcohol type: beer alcohol intake frequency: holidays/special occasions only Hx Substance Use: No substance use type: does not use Review of Systems Patient denies active symptoms of GERD. Physical Exam Vital Signs Last Vital Signs Temp 37.4 C 06/29/20 14:56 Pulse 60 06/29/20 14:56 Resp 18 06/29/20 14:56 BP 113/71 06/29/20 14:56 Pulse Ox 97 06/29/20 14:56 Constitutional not obese ENMT Mouth: no TMJ abnormality and oral opening not small Thyromental Distance: > or= 3.5 Finger Breadths Mallampati Class: I Neck normal visual inspection; neck extension not limited Respiratory normal respiratory effort Auscultation: lungs clear to auscultation bilaterally Cardiovascular Rate/Rhythm: regular rate and regular rhythm Heart Sounds: no murmur Neurologic moves all extremities Psychiatric Orientation: alert and oriented x 3 Testing Laboratory Results 06/28/20 15:18 06/29/20 05:26 PT 11.6 Seconds (9.0-12.0) 06/28/20 15:18 INR 1.1 (0.9-1.1) 06/28/20 15:18 APTT Cancelled 06/29/20 05:22 Urine Color Yellow 06/28/20 20:00 Urine Appearance Clear (Clear) 06/28/20 20:00 Urine pH 6.0 (4.5-7.5) 06/28/20 20:00 Ur Specific [place] 1.039 (1.000-1.030) H 06/28/20 20:00 Urine Protein 1+ (Negative) H 06/28/20 20:00 Urine Glucose (UA) Negative (Negative) 06/28/20 20:00 Urine Ketones Trace (Negative) H 06/28/20 20:00 Urine Nitrite Negative (Negative) 06/28/20 20:00 Ur Leukocyte Esterase Trace (Negative) H 06/28/20 20:00 Urine WBC (Auto) 10-30 /hpf (0-5) H 06/28/20 20:00 Urine RBC (Auto) >30 /hpf (0-4) H 06/28/20 20:00 U Hyaline Cast (Auto) 5-10 /lpf (0-5) H 06/28/20 20:00 U Epithel Cells (Auto) 10-20 /lpf (0-5) H 06/28/20 20:00 Urine Bacteria (Auto) Negative (Negative) 06/28/20 20:00 06/28/20 20:00 Urine Culture - Preliminary Urine,Clean Catch No growth - Less than 1,000 colonies/mL, Final report to follow.
[2020-06-29] MEDS ORDERED: CIPROFLOXACIN 400MG / 200ML D5W IV ONE (15:11)
[2020-06-29] MEDS ORDERED: ONDANSETRON INJ 2 MG/ML 2 ML VIAL IV PRN (15:16)
[2020-06-29] MEDS ORDERED: fentaNYL citrate 100 MCG/2 ML VIAL IV PRN (15:16)
[2020-06-29] MEDS ORDERED: ePHEDrine sulfate 50 MG/ML AMP IV PRN (15:16)
[2020-06-29] MEDS ORDERED: ATROPINE SULFATE 0.1 MG/ML 10ML SYR IV PRN (15:16)
[2020-06-29] MEDS ORDERED: PROPOFOL IV EMULSION 10 MG/ML 20 ML VIAL IV ONE (15:32)
[2020-06-29] MEDS ORDERED: LIDOCAINE HCL 2% 2 ML VIAL/AMP(20MG/ML) INFIL ONE (15:32)
[2020-06-29] MEDS ORDERED: ONDANSETRON INJ 2 MG/ML 2 ML VIAL ONE (15:32)
[2020-06-29] MEDS ORDERED: MIDAZOLAM HCL 1 MG/ML 2ML VIAL ONE (15:32)
[2020-06-29] MEDS ORDERED: IOTHALAMATE MEGLUMINE II 17.2% 250 ML VIAL INSTIL ONE (16:12)
[2020-06-29] MEDS ORDERED: fentaNYL citrate 100 MCG/2 ML VIAL ONE (16:12)
--- NOTE | 2020-06-29 16:13 | Operative Report ---
PG Post Operative Report Pre & Post Diagnosis Operation Date: 06/29/20 14:30 Pre-Op Diagnosis: KIDNEY STONE Left Same I identified the patient and participated in the time-out.: Yes Procedure Operation Date: 06/29/20 14:30 Actual Procedures p Cystoscopy, Left retrograde pyelogram and Stent Insertion - Barron Montoya DO Surgeon Barron Montoya, II, DO [employer] None Estimated Blood Loss 1 Findings Consistent with Post-Op Diagnosis Stent placed in good position. Specimens None Drains 6 Fr Multilength Anesthesia Type MAC Complications none Disposition Disposition: Recovery Room Indications Patient with obstruction. Risks and benefits discussed at length. Description of Procedure Patient was consented and brought back to the operating room. Patient was placed under anesthesia in the supine position and moved to the dorsal lithotomy position. Patient was prepped and draped in the regular sterile fashion. A time out was completed. A 30degree Cystoscope was placed into the bladder and the entire bladder was examined. The UO's were identified. The UO was cannulized with a catheter and a retrograde pyelogram was completed. A wire was then placed. With the wire in place, a 6 Fr Double J stent was placed. It was confirmed with fluoroscopy. With the stent in place, the bladder was emptied. The scope was removed. The patient was cleaned, aroused from anesthesia, and transferred to the pacu in stable condition having tolerated the procedure well with no complications. I was present and participated in all aspects of the procedure. The patient will be monitored in the PACU until transferred. I attest to the content of the Intraoperative Record and any orders documented t herein. Any exceptions are noted below.
--- NOTE | 2020-06-29 16:33 | Anesthesiology Progress Note ---
Date of Service June 29, 2020 Anesthesia Post Procedure Vital Signs Vital Signs: Temp Pulse Pulse Resp BP Pulse Ox 06/29/20 14:56 37.4 C 60 59 L 18 113/71 97 06/29/20 08:54 131/87 06/29/20 07:22 36.8 C 63 16 131/76 95 06/29/20 04:10 36.9 C 61 14 142/82 H 95 06/29/20 00:09 36.9 C 66 14 130/89 98 Pain Intensity Bilateral Abdomen: Pain Intensity: 9 Transfer of Care Handoff Completed per policy Notes Mental Status: alert / awake / arousable and participated in evaluation Patient Amnestic to Procedure: Yes Nausea / Vomiting: adequately controlled Pain: adequately controlled Airway Patency, RR, SpO2: stable & adequate BP & HR: stable & adequate Hydration State: stable & adequate Anesthetic Complications: no major complications apparent
--- NOTE | 2020-06-29 17:08 | Fluoroscopy Report ---
FL retrograde includes kub CLINICAL HISTORY: Left retrograde and stent placement. COMPARISON STUDY: None. FLUOROSCOPY TIME: 18 seconds. FINDINGS: 3 fluoroscopic spot images of the left side the abdomen demonstrates retrograde opacificati on of the left renal collecting system/ureter with placement of a left ureteral stent. The ureteral s tent appears in good position. IMPRESSION: Fluoroscopy provided for left ureteral stent placement which appears in good position. ACT 112: Negative or not required by law. Electronically signed by: Garrison Love M.D. 06/29/2020 5:07 PM
[2020-06-29] MEDS: SERTRALINE HCL 50 MG TABLET PO SCH (20:11)
[2020-06-29] MEDS: ATORVASTATIN 20 MG TAB PO SCH (20:11)
[2020-06-30 00:02] LABS: Partial Thromboplastin Ratio 1.5; Partial Thromboplastin Time 42.3 Seconds (21.0-31.0)
[2020-06-30] MEDS ORDERED: HEPARIN IV BOLUS 3,000 UNITS in SYRINGE 0 ML IV ONE (00:07)
[2020-06-30] MEDS: OXYBUTYNIN CHLORIDE 5 MG TAB PO PRN ×3 (00:39→19:47)
[2020-06-30 06:39] LABS: Hematocrit (blood only) 32.8 % (42-52); Hemoglobin 10.3 g/dL (14.0-18.0); Mean Corpuscular Hemoglobin 24.7 pg (25-34); Mean Corpuscular Hgb Conc 31.4 g/dL (32-36); Mean Corpuscular Volume 78.7 fL (80-100); Mean Platelet Volume 8.8 fL (7.4-10.4); Platelet Count 298 K/uL (130-400); RDW Coefficient of Variation 15.5 % (11.5-14.5); RDW Standard Deviation 45.1 fL (36.4-46.3); Red Blood Count 4.17 M/uL (4.7-6.1); White Blood Count 6.44 K/uL (4.8-10.8)
[2020-06-30 06:59] LABS: Partial Thromboplastin Ratio 2.7
[2020-06-30 07:16] LABS: BUN Creatinine Ratio 16.2 (10-20); Calcium 8.6 mg/dl (8.5-10.1); Creatinine Clr Calc Pharmacy 110.2 ml/min; Potassium 3.3 mmol/L (3.5-5.1)
--- NOTE | 2020-06-30 08:04 | Urology Progress Note ---
Date of Service June 30, 2020 Assessment & Plan (1) Left renal stone: (2) History of kidney stones: 60yo M s/p Cystoscopy, Retrograde Pyelogram, Left Stent Placement secondary to severe left flank pain due to a 10mm Left UPJ Stone -Patient doing well with improvement in symptoms -Afebrile, WBC and Cr are stable -Urine culture is preliminary no growth, can treat if positive -Recommend home with pain control, Flomax, Oxybutynin, and Pyridium -Will arrange follow-up outpatient with our service in 1-2 weeks after discharge for definitive stone treatment -Patient agreeable to above plan. All questions were answered. -Stable from perspective for discharge. Thank you for allowing us to participate in the acute care of Mr. Man. Please reconsult us with additional questions, concerns or changes in patient status. Admission and Anticipated Discharge Date Admission Date: June 28, 2020 Subjective 60yo M admitted on 06/28/20 with severe left flank pain secondary to a 10mm Left UPJ Stone POD #1 s/p Cystoscopy, Retrograde Pyelogram, Left Stent placement on 06/29/[address] Montoya Patient is doing well post procedure Pain has improved Tolerating the stent with some mild discomfort Denies fevers or chills Mild dysuria and hematuria as expected Tolerating PO diet without nausea or vomiting Chart Review: Afebrile WBC-6.44 HgB-10.3 Cr-0.74 UC&S (06/28)- Prelim no growth No additional Urological concerns today Review of Systems Constitutional: as per Subjective / HPI Gastrointestinal: as per Subjective / HPI Genitourinary: + as per Subjective / HPI Physical Exam Constitutional: well developed and well nourished; no acute distress Respiratory: normal respiratory effort and able to speak in complete sentences Cardiovascular: No peripheral edema Gastrointestinal (Abdomen): Inspection/Auscultation: abdomen normal to inspection; abdomen not distended Percussion/Palpation: abdomen soft; abdomen nontender Musculoskeletal: Head/Neck/Chest: normocephalic Skin: no rashes, warm and dry normal color to visualized skin areas Neurologic: moves all extremities and awake; not confused Psychiatric: Orientation: alert, oriented x 3 and cooperative Genitourinary: no CVA tenderness Results & Data ([facility]) Vital Signs (Past 12 Hours) Vital Signs Temp Pulse Resp BP Pulse Ox 06/30/20 07:12 36.8 C 50 L 16 106/56 L 97 06/30/20 03:44 37 C 53 L 16 127/56 L 97 06/29/20 23:20 37.3 C 55 L 18 123/72 96 06/29/20 20:06 37.1 C 57 L 16 133/66 98 PG Care Time/CCT Total # of Minutes Spent Total Time Spent with Patient: Total time spent is greater than 50% in coordination of care (as documented) at patient's floor/unit and/or counseling patient: Coding Level of Care Code 02533 Subseq Hosp Care Lvl 2 Diagnoses Left renal stone N20.0 History of kidney stones Z87.442
[2020-06-30] MEDS ORDERED: POTASSIUM CHLORIDE 20 MEQ TABCR PO ONE (08:15)
[2020-06-30] MEDS: NSS + 20MEQ KCL 20 MEQ/1,000 ML BAG IV SCH (09:29)
[2020-06-30] MEDS: TAMSULOSIN HCL 0.4 MG CAP PO SCH (09:30)
[2020-06-30] MEDS: PANTOprazole 40 MG TAB PO SCH (09:31)
[2020-06-30] MEDS: lisinopriL 5 MG TAB PO SCH (09:32)
[2020-06-30] MEDS: PHENAZOPYRIDINE HCL 100 MG TAB PO PRN (09:36)
[2020-06-30] MEDS: MoRPHine SULFATE 4 MG/ML 1 ML CARP\\VIAL IV PRN (13:18)
[2020-06-30] MEDS: ONDANSETRON INJ 2 MG/ML 2 ML VIAL IV PRN ×2 (13:24→17:57)
[2020-06-30 13:38] LABS: Hematocrit (blood only) 32.2 % (42-52); Hemoglobin 10.4 g/dL (14.0-18.0)
[2020-06-30] MEDS: HEPARIN SODIUM/DEXTROSE 25,000 UNITS/500 ML BAG IV SCH (13:50)
[2020-06-30 13:54] LABS: Partial Thromboplastin Ratio 1.8
[2020-06-30 14:18] LABS: Partial Thromboplastin Time 49.9 Seconds (21.0-31.0)
[2020-06-30] MEDS: OXYCODONE HCL IR 5 MG TAB (IMMEDIATE RELEASE) PO PRN ×3 (14:29→23:11)
--- NOTE | 2020-06-30 15:55 | Hospitalist Progress Note ---
Date of Service June 30, 2020 Assessment & Plan (1) Left renal stone: (2) History of kidney stones: Left ureteral stone with hydronephrosis. 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 He reports that his pain feels like the stomach pain he has been having since being diagnosed with the clot which can be very painful at times. Will medicate pain with oxycodone and morphine prn (4) Crohns disease: Takes Humira and mesalamine - patient did not bring these medications from home so on hold. 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 He is passing gas, has bowel sounds - tympanic. VSS. Will obtain KUB (8) Wells esophagus: Continue ppi (9) Hypertension: Continue lisinopril (10) DVT prophylaxis: Lovenox Admission and Anticipated Discharge Date Admission Date: June 28, 2020 Subjective Mr. Man is having quite a lot of pain today in his abdomen, especially post prandial, with some nausea. No bm today. This does not feel like the pain he gets with a Crohn's flare. He does feel that this pain feels like an extension of the pain he has been feeling since being diagnosed with the superior mesenteric clot. ROS Constitutional: no chills, aches, sweats or fever Respiratory: no sob,cough, sputum, or wheezing Cardiac: no chest pain, palpitations, edema, orthopnea or lightheadedness GI: see HPI : no dysuria or hesitancy Extremities: no joint pain or weakness Skin: no rash All other systems reviewed and negative Physical Exam Physical Exam: General: no distress Eyes: normal inspection, PERLL Respiratory: chest non tender, clear to auscultation, normal breath sounds, no respiratory distress, no accessory muscle use Cardiac: regular rate and rhythm, no rub or gallop, no murmur, no edema, no jvd GI/: tympanic bowel sounds, tender abdomen diffusely, soft, non distended Extremities: normal range of motion, normal strength, non tender Neuro/Psych: alert and oriented x 3, normal mood and affect Skin: normal color, dry Results & Data Results & Data ([facility]) Vital Signs (Past 12 Hours) Vital Signs Temp Pulse Resp BP Pulse Ox 06/30/20 15:21 36.8 C 61 17 121/70 95 06/30/20 09:31 161/80 H 06/30/20 07:12 36.8 C 50 L 16 106/56 L 97 PG Care Time/CCT Total # of Minutes Spent Total Time Spent with Patient: Total time spent is greater than 50% in coordination of care (as documented) at patient's floor/unit and/or counseling patient: Coding Level of Care Code 94380 Subseq Hosp Care Lvl 3 Diagnoses Left renal stone N20.0 History of kidney stones Z87.442 Blood clot in vein I82.90 Crohns disease K50.019 Gastrointestinal tract location: small intestine Digestive disease complication type: unspecified complication Blood clotting disorder D68.9 Hypokalemia E87.6 Abdominal pain R10.9 Wells esophagus K22.70 Wells's esophagus type: without dysplasia Hypertension I10 Hypertension type: essential hypertension DVT prophylaxis Z29.9 (1) Wells esophagus Wells's esophagus type: without dysplasia Qualified Code(s): K22.70 - Wells's esophagus without dysplasia (2) Crohns disease Gastrointestinal tract location: small intestine Digestive disease complication type: unspecified complication Qualified Code(s): K50.019 - Crohn's disease of small intestine with unspecified complications (3) Hypertension Hypertension type: essential hypertension Qualified Code(s): I10 - Essential (primary) hypertension
--- NOTE | 2020-06-30 16:48 | XRay Report ---
KUB HISTORY: abdominal pain and distention COMPARISON: KUB 06/16/2020. Outside hospital abdomen and pelvis CT 06/28/2020. FINDINGS: The bowel gas pattern is unremarkable. There are no dilated loops of small bowel to suggest an obstruction. The right ureteral stent has been removed in the interval. Prior cholecystectomy. T here is an 8 mm stone projecting of the left ureteropelvic junction. This is decreased in size. Inter kassie placement of a left ureteral stent which appears in good position. No right renal calculi identif ied. There is also a punctate stone within the lower pole of the left kidney. This is also unchanged. No pneumoperitoneum or pneumatosis. IMPRESSION: 1. An 8 mm stone overlying the left ureteropelvic junction which has slightly decreased in size. 2. Interval placement of a left ureteral stent which appears in good position. ACT 112: Negative or not required by law. Electronically signed by: Garrison Love M.D. 06/30/2020 4:47 PM
[2020-06-30] MEDS ORDERED: bisacodyL 10 MG SUPP PR STA (17:29)
[2020-06-30] MEDS: ENOXAPARIN 80 MG/0.8 ML SYR SQ SCH (19:25)
[2020-06-30] MEDS: ATORVASTATIN 20 MG TAB PO SCH (20:39)
[2020-06-30] MEDS: SERTRALINE HCL 50 MG TABLET PO SCH (20:39)
[2020-07-01] MEDS: ENOXAPARIN 80 MG/0.8 ML SYR SQ SCH (06:22)
[2020-07-01 06:57] LABS: Hematocrit (blood only) 30.3 % (42-52); Hemoglobin 9.7 g/dL (14.0-18.0); Mean Corpuscular Hemoglobin 25.2 pg (25-34); Mean Corpuscular Volume 78.7 fL (80-100); Mean Platelet Volume 9.1 fL (7.4-10.4); Platelet Count 275 K/uL (130-400); RDW Coefficient of Variation 15.7 % (11.5-14.5); RDW Standard Deviation 45.2 fL (36.4-46.3); Red Blood Count 3.85 M/uL (4.7-6.1); White Blood Count 6.15 K/uL (4.8-10.8)
[2020-07-01 07:02] LABS: Partial Thromboplastin Time 27.1 Seconds (21.0-31.0)
[2020-07-01 07:28] LABS: Albumin Level 2.7 gm/dl (3.4-5.0); BUN Creatinine Ratio 11.4 (10-20); Calcium 8.4 mg/dl (8.5-10.1); Creatinine Clr Calc Pharmacy 110.2 ml/min; Potassium 3.4 mmol/L (3.5-5.1)
[2020-07-01 07:33] LABS: Albumin Globulin Ratio 0.9 (0.9-2); Bilirubin,Total 0.5 mg/dl (0.2-1); Globulin 3.1 gm/dl (2.5-4.0); Total Protein 5.8 gm/dl (6.4-8.2)
[2020-07-01] MEDS: OXYCODONE HCL IR 5 MG TAB (IMMEDIATE RELEASE) PO PRN (07:50)
[2020-07-01] MEDS: lisinopriL 5 MG TAB PO SCH (09:39)
[2020-07-01] MEDS: PANTOprazole 40 MG TAB PO SCH (09:39)
[2020-07-01] MEDS: TAMSULOSIN HCL 0.4 MG CAP PO SCH (09:39)
[2020-07-01] MEDS: OXYBUTYNIN CHLORIDE 5 MG TAB PO PRN (09:39)
[2020-07-01] MEDS ORDERED: POTASSIUM CHLORIDE 20 MEQ TABCR PO STA (09:45)
--- NOTE | 2020-07-01 10:28 | Discharge Summary ---
Date of Service July 01, 2020 Admission HPI Per Admitting Provider This is a pleasant 60 yo male with PMH described below. He was recently admitted with a kidney stone and discharged. However, this past few days, he began having left sided flank pain and thought it was related to his abdomen. He was brought in to [facility], and HIS CT scan showed a an ocbstructing stone at his uterovesical junction. Patient is transferred to [facility] for [facility]. Patient reports his pain is now better controlled. Principal Diagnosis kidney stone Discharge Exam Constitutional WD/WN, vitals as above Respiratory normal respiratory effort, lungs clear to auscultation Cardiovascular RRR, no murmur, no edema Gastrointestinal (Abdomen) Inspection/Auscultation: abdomen normal to inspection and normal bowel sounds; abdomen not distended Percussion/Palpation: + abdomen tender (mild) and abdomen soft Musculoskeletal no cyanosis or clubbing, extremities motor strength 5/5 Skin no rashes, warm and dry Neurologic moves all extremities and awake Psychiatric A+Ox3, euthymic affect Discharge Data Allergies Allergy/AdvReac Type Severity Reaction Status Date / Time No Known Allergies Allergy Verified 06/16/20 15:02 Consultations 06/28/20 14:19 Consult Urology Routine Procedures Performed Operation Date: 06/29/20 14:30 Actual Procedures p Cystoscopy, Left Stent Insertion(Left) - Barron Montoya, Ordered Studies 06/29/20 13:30 FL retrograde includes kub Routine Hospital Course (1) Left renal stone: (2) History of kidney stones: Left ureteral stone with hydronephrosis. Consulted urology - s/p cysto with stent 06/29 Continue Flomax which patient takes for bph, also oxybutynin for spasm, and Pyridium for pain as well as oxycodone. Pain is improved today (3) Blood clot in vein: Superior mesenteric vein thrombosis Continue home Lovenox Patient with diffuse abdominal pain yesterday, much improved today. KUB without acute findings (4) Crohns disease: Takes Humira and mesalamine - patient did not bring these medications from home so on hold. 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 He is passing gas, small bm (8) Wells esophagus: Continue ppi (9) Hypertension: Continue lisinopril (10) DVT prophylaxis: Lovenox Total Time Total Time Spent Total Time Spent (In Minutes): greater than 30 minutes Discharge Plan Discharge Items Patient Disposition: Home - Self-Care Reason For Visit: KIDNEY STONE Discharge Diagnosis: kidney stone Activity: Resume your previous activity Driving/Machine Use: no driving while taking oxycodone Non-emergency contact: Primary Care Provider Call non-emergency contact if: you have any medication questions Follow-up/Referrals: Barron Montoya DO [Physician] - 07/06/20 1:30 pm (Follow up in one week) Simone Ying [Primary Care Provider] - 07/09/20 9:40 am (follow up in one week APPT MADE WITH PCP OFFICE WILL SEE PAC. ARIELLA) Diet: Low Fiber Addtl Attending Provider Instructions: (1) Left renal stone: You were treated for a left ureteral stone with a cystoscopy and left stent insertion with Dr. Montoya - Continue Flomax - You can use oxybutynin for bladder spasm and phenazopyridine and oxycodone for bladder pain (2) Blood clot in vein: Superior mesenteric vein thrombosis - Continue Lovenox shots. (3) Hypokalemia: Your potassium was low this admission. - Continue potassium supplement for the next 7 days. Discuss with your doctor if you should retake your potassium level and if constant potassium supplementation would be beneficial Pending Studies at Discharge: No Stand-Alone Forms: My [facility], Smoking Cessation Medications and DC Order Prescriptions: New phenazopyridine [Pyridium] 100 mg Tablet 100 mg PO Q8H PRN (Reason: pain) Qty: 14 RF: 0 oxybutynin chloride 5 mg Tablet 5 mg PO BID PRN (Reason: bladder spasms) Qty: 30 RF: 0 potassium chloride 20 mEq tablet extended release 20 meq PO DAILY Qty: 7 RF: 0 oxycodone 5 mg Tablet 5 mg PO Q4H PRN (Reason: pain) Qty: 18 RF: 0 Continued tamsulosin [Flomax] 0.4 mg capsule 0.4 mg PO DAILY Qty: 30 RF: 0 atorvastatin [Lipitor] 20 mg tablet 20 mg PO HS RF: 0 sertraline 50 mg tablet 50 mg PO HS RF: 0 zolpidem 10 mg tablet 10 mg PO HS PRN (Reason: Sleep) RF: 0 lisinopril 5 mg tablet 5 mg PO QAM RF: 0 lorazepam 0.5 mg tablet 0.5 mg PO DAILY PRN (Reason: Anxiety) RF: 0 omeprazole 40 mg capsule,delayed release(DR/EC) 40 mg PO QAM RF: 0 multivitamin [Daily Multi-Vitamin] tablet 1 tab PO QAM RF: 0 mesalamine 0.375 gram capsule,extended release 24hr 0.375 g PO BID RF: 0 cyanocobalamin (vitamin B-12) [Vitamin B-12] 1,000 mcg tablet extended release 1,000 mcg PO QAM RF: 0 enoxaparin [Lovenox] 80 mg/0.8 mL Syringe 80 mg SUBCUT Q12H RF: 0 Humira(CF) Pen 40 mg/0.4 mL pen injector kit See Rx Instructions .ROUTE .COMPLEX RF: 0 diclofenac sodium 1 % gel 4 g TOPICAL QID PRN (Reason: Right Shoulder Pain) RF: 0 Discharge Orders: Discharge Order (Routine); Ordered 07/01/20 Ordered By: Melissa Chaudhari Admission Data Admit Date/Time: 06/28/20 13:46 Attending Provider: Luther Burgess Admit Provider: Dianne Ferro Primary Care Provider: Simone Ying Other Providers: Barron Montoya Other Interventions: Discharge Summary Assessment (RN) Last Done: 07/01/20 11:54 Supervising Physician Co-Signing Physician Notes Patient seen and examined on the day of discharge. I agree with the discharge summary by Melissa COREAS. I have reviewed the chart including labs, imaging and plans for discharge. patient feeling better, less pain from the stent, moving bowels, passing flatus, eating well - Left ureteral stone: s/p left ureteral stent, continue flomax, follow up with urology - Superior mesenteric vein thrombosis: continue Lovenox injection Coding Level of Care Code D/C Day Management >30 mins Diagnoses Left renal stone N20.0 History of kidney stones Z87.442 Blood clot in vein I82.90 Crohns disease K50.019 Digestive disease complication type: unspecified complication Gastrointestinal tract location: small intestine Blood clotting disorder D68.9 Hypokalemia E87.6 Abdominal pain R10.9 Wells esophagus K22.70 Wells's esophagus type: without dysplasia Hypertension I10 Hypertension type: essential hypertension DVT prophylaxis Z29.9
== END 2020-07-01 12:30 | disposition home or self-care (01) ==
LOC: INTOOBSV 13:46 → SUATTDRO 13:46 → 3W 13:46
DX: M19.90 Unspecified osteoarthritis, unspecified site; F41.9 Anxiety disorder, unspecified; E87.6 Hypokalemia; Z79.1 Long term (current) use of non-steroidal anti-inflammatories (NSAID); E78.5 Hyperlipidemia, unspecified; I10 Essential (primary) hypertension; D68.9 Coagulation defect, unspecified; K21.9 Gastro-esophageal reflux disease without esophagitis; K22.70 Barrett's esophagus without dysplasia; N20.0 Calculus of kidney; Z79.899 Other long term (current) drug therapy; R10.9 Unspecified abdominal pain; I82.890 Acute embolism and thrombosis of other specified veins; K50.019 Crohn's disease of small intestine with unspecified complications; Z79.01 Long term (current) use of anticoagulants; N40.0 Benign prostatic hyperplasia without lower urinary tract symptoms